=== PATIENT | male | born 1975 | race Caucasian/White ===

== ENCOUNTER 2018-11-12 12:35 | Emergency (ER) | payer BC, OTHER ==
[~2018-11-12] VITALS: Ht 176 cm; Wt 70.3 kg
[2018-11-12 13:15] LABS: HEMATOCRIT 38 % (40-54); HEMOGLOBIN 13.1 G/DL (13.3-17.7); MEAN CORPUSCULAR HEMOGLOBIN 30 PG (25-34); MEAN CORPUSCULAR VOLUME 87 FL (80-99)
[2018-11-12 13:16] LABS: BASOPHILS % (AUTO) 0 % (0-10); EOSINOPHILS # (AUTO) 0.1 10^3/uL (0.0-0.3); EOSINOPHILS % (AUTO) 7 % (0-10); LYMPHOCYTES # (AUTO) 3.1 X 10^3 (1.0-4.0); LYMPHOCYTES % (AUTO) 26 % (12-44); MEAN CORPUSCULAR HGB CONC 34 G/DL (32-36); MEAN PLATELET VOLUME 9.2 FL (7.4-10.4); MONOCYTES # (AUTO) 1.5 X 10^3 (0.0-1.0); MONOCYTES % (AUTO) 13 % (0-12); NEUTROPHILS # (AUTO) 7.2 X 10^3 (1.8-7.8); NEUTROPHILS % (AUTO) 60 % (42-75); PLATELET COUNT 248 10^3/uL (130-400); RED CELL DISTRIBUTION WIDTH 12.1 % (10.0-14.5)
[2018-11-12 13:33] LABS: BILIRUBIN,TOTAL 0.9 MG/DL (0.1-1.0); BUN/CREATININE RATIO 12; CALCIUM 8.8 MG/DL (8.5-10.1); CARBON DIOXIDE 22 MMOL/L (21-32); CHLORIDE 94 MMOL/L (98-107); CREATININE SERUM 0.95 MG/DL (0.60-1.30); GFR ESTIMATED > 60; GLUCOSE 112 MG/DL (70-105); POTASSIUM 3.7 MMOL/L (3.6-5.0); SODIUM 133 MMOL/L (135-145)
[2018-11-12 13:34] LABS: ALANINE AMINOTRANSFERASE 66 U/L (0-55); ALBUMIN 4.1 GM/DL (3.2-4.5); ALKALINE PHOSPHATASE 103 U/L (40-136); TOTAL PROTEIN 7.2 GM/DL (6.4-8.2)
[2018-11-12 14:17] LABS: BILIRUBIN,URINE 2+ (NEGATIVE); CLARITY,URINE CLEAR; COLOR,URINE BROWN; GLUCOSE, URINE (UA) NEGATIVE (NEGATIVE); KETONES,URINE TRACE (NEGATIVE); NITRITE,URINE NEGATIVE (NEGATIVE); PROTEIN,URINE 1+ (NEGATIVE)
[2018-11-12 14:18] LABS: BACTERIA,URINE TRACE /HPF; LEUKOCYTE ESTERASE ,URINE TRACE (NEGATIVE)
--- NOTE | 2018-11-12 14:50 | ED General ---
General Chief Complaint: Respiratory Problems Stated Complaint: ABD PAIN Nursing Triage Note: Patient arrived by private vehcile with significant other with chief complaint of side pain. Pt stated side pain bilateral, started couple days ago. SOB started yesterday. Pt was alert, orineted and ambulatory at arrival. Pt stated he had fever for couple days and asked Ness Sanford APRN of [facility] if it was okay to give tylenol and she stated yes. So they gave him tylenol. Pt has PMH of heart attack 2 eyars ago with 1 stent placed. Patient has clear, bilateral breath sounds. Nursing Sepsis Screen: No Definite Risk Source of Information: Patient History of Present Illness Date Seen by Provider: Nov 12, 2018 Time Seen by Provider: 14:45 Initial Comments The patient is a 43-year-old white male who presents with a chief complaint of upper abdomen/lower chest pain. He reports that he has had a fever at home. He had been at work today carrying light loads. This brought the pain on. He reports that he had had some loose stools over the past 2 days. No one else at home has had this. He then began to have pain in the chest and was fearful as he had a myocardial infarction a couple of years ago which she calls the maker. He apparently had a totally occluded LAD. He had to be resuscitated 4 different times. He was left with an ejection fraction of 30 percent. He has continued follow-up in the subsequent time frame. Timing/Duration: 4-6 Hours Severity: Mild, Moderate Associated Systoms: Chest Pain, Diaphoresis, Shortness of Air Allergies and Home Medications Allergies Coded Allergies: No Known Drug Allergies (Unverified , 11/12/18) Patient Home Medication List Home Medication List Reviewed: Yes Review of Systems Review of Systems Constitutional: see HPI EENTM: no symptoms reported Respiratory: cough, short of breath Cardiovascular: see HPI Gastrointestinal: diarrhea Genitourinary: no symptoms reported Musculoskeletal: no symptoms reported Skin: no symptoms reported Past Chdgcbz-Lwctdd-Hynblk Hx Patient Social History Recent Foreign Travel: No Contact w/Someone Who Travel: No Recent Infectious Disease Expo: No Physical Abuse: No Sexual Abuse: No Mistreated: No Fear: No Physical Exam Vital Signs Vital Signs - First Documented 11/12/18 12:40 Temp 38.1 Pulse 72 Resp 17 B/P (MAP) 111/70 (84) Pulse Ox 95 O2 Delivery Room Air Capillary Refill : Less Than 3 Seconds Height, Weight, BMI Height: '" Weight: lbs. oz. kg; 22.00 BMI Method: General Appearance: Anxious, Mild Distress Eyes: Bilateral Eye Normal Inspection HEENT: Other (poor dentition) Neck: Full Range of Motion Respiratory: Chest Non Tender, Lungs Clear, Normal Breath Sounds, No Accessory Muscle Use Cardiovascular: Regular Rate, Rhythm Gastrointestinal: Abnormal Bowel Sounds (decreased) Neurologic/Psychiatric: Alert, Oriented x3, No Motor/Sensory Deficits Comments Very slender Progress/Results/Core Measures Suspected Sepsis Recent Fever Within 48 Hours: Yes Infection Criteria Present: Suspected New Infection New/Unexplained Altered Menta: No Sepsis Screen: No Definite Risk SIRS Temperature: Pulse: 72 Respiratory Rate: 17 Laboratory Tests 11/12/18 13:02: White Blood Count 12.0H Blood Pressure 111 /70 Mean: 84 Laboratory Tests 11/12/18 13:02: Creatinine 0.95, Platelet Count 248, Total Bilirubin 0.9 Results/Orders Lab Results Laboratory Tests Test 11/12/18 13:02 11/12/18 14:00 Range/Units White Blood Count 12.0 H 4.3-11.0 10^3/uL Red Blood Count 4.40 4.35-5.85 10^6/uL Hemoglobin 13.1 L 13.3-17.7 G/DL Hematocrit 38 L 40-54 % Mean Corpuscular Volume 87 80-99 FL Mean Corpuscular Hemoglobin 30 25-34 PG Mean Corpuscular Hemoglobin Concent 34 32-36 G/DL Red Cell Distribution Width 12.1 10.0-14.5 % Platelet Count 248 130-400 10^3/uL Mean Platelet Volume 9.2 7.4-10.4 FL Neutrophils (%) (Auto) 60 42-75 % Lymphocytes (%) (Auto) 26 12-44 % Monocytes (%) (Auto) 13 H 0-12 % Eosinophils (%) (Auto) 7 0-10 % Basophils (%) (Auto) 0 0-10 % Neutrophils # (Auto) 7.2 1.8-7.8 X 10^3 Lymphocytes # (Auto) 3.1 1.0-4.0 X 10^3 Monocytes # (Auto) 1.5 H 0.0-1.0 X 10^3 Eosinophils # (Auto) 0.1 0.0-0.3 10^3/uL Basophils # (Auto) 0.0 0.0-0.1 10^3/uL Sodium Level 133 L 135-145 MMOL/L Potassium Level 3.7 3.6-5.0 MMOL/L Chloride Level 94 L 98-107 MMOL/L Carbon Dioxide Level 22 21-32 MMOL/L Anion Gap 17 H 5-14 MMOL/L Blood Urea Nitrogen 11 7-18 MG/DL Creatinine 0.95 0.60-1.30 MG/DL Estimat Glomerular Filtration Rate > 60 BUN/Creatinine Ratio 12 Glucose Level 112 H 70-105 MG/DL Calcium Level 8.8 8.5-10.1 MG/DL Corrected Calcium 8.7 8.5-10.1 MG/DL Total Bilirubin 0.9 0.1-1.0 MG/DL Aspartate Amino Transf (AST/SGOT) 50 H 5-34 U/L Alanine Aminotransferase (ALT/SGPT) 66 H 0-55 U/L Alkaline Phosphatase 103 40-136 U/L Total Protein 7.2 6.4-8.2 GM/DL Albumin 4.1 3.2-4.5 GM/DL Urine Color BROWN H Urine Clarity CLEAR Urine pH 6.0 5-9 Urine Specific [place] 1.020 1.016-1.022 Urine Protein 1+ H NEGATIVE Urine Glucose (UA) NEGATIVE NEGATIVE Urine Ketones TRACE H NEGATIVE Urine Nitrite NEGATIVE NEGATIVE Urine Bilirubin 2+ H NEGATIVE Urine Urobilinogen 4.0 NORMAL MG/DL Urine Leukocyte Esterase TRACE NEGATIVE Urine RBC (Auto) TRACE H NEGATIVE Urine RBC NONE /HPF Urine WBC 2-5 /HPF Urine Crystals NONE /LPF Urine Bacteria TRACE /HPF Urine Casts NONE /LPF Urine Mucus MODERATE H /LPF Urine Culture Indicated NO My Orders Orders - MILO MCKEON MD Cbc With Automated Diff (11/12/18 12:49) Comprehensive Metabolic Panel (11/12/18 12:49) Ua Culture If Indicated (11/12/18 12:49) Chest 1 View Ap/Pa Only (11/12/18 14:43) Ekg Tracing (11/12/18 15:12) Vital Signs/I&O 11/12/18 12:40 Temp 38.1 Pulse 72 Resp 17 B/P (MAP) 111/70 (84) Pulse Ox 95 O2 Delivery Room Air Capillary Refill : Less Than 3 Seconds Blood Pressure Mean: 84 Departure Communication (Admissions) CBC was negative with granulocytes at 10,000. Chest x-ray showed no infilt rates. The patient again reiterates that he had had abdominal symptoms with loose but not watery stools for 2-3 days. He has not had a stool today. He has had a fever for the last several days. Impression Primary Impression: viral illness Disposition: HOME, SELF-CARE Condition: Stable/Unchanged Departure-Patient Inst. Decision time for Depature: 15:43 Referrals: [facility] (PCP) Primary Care Physician NESS SANFORD APRN (Family) Primary Care Physician Add. Discharge Instructions: All discharge instructions reviewed with patient and/or family. Voiced understanding. Take only clear liquids today. You may take Tylenol 650 every 4 hours as needed for fever and aches and pains. Do not use if you are temperature is less than 100. Return to emergency room if change in condition. MILO MCKEON MD Nov 12, 2018 14:50
--- NOTE | 2018-11-12 15:00 | Diagnostic Imaging Report ---
INDICATION: Shortness of breath. TIME OF EXAMINATION: 2:29 PM. COMPARISON: No prior studies are available for comparison. FINDINGS: The heart size is normal. The pulmonary vascularity is unremarkable. The lungs are clear. No infiltrate, effusion, or pneumothorax is detected. IMPRESSION: No acute cardiopulmonary process is detected. Dictated by: Dictated on workstation # [id number]
[2018-11-12 16:02] VITALS: BP 105/65
--- NOTE | 2018-11-12 16:02 | NUR ---
Patient has temp of 38.4C. Dr. Mendoza notified at this time. Dr. Mendoza gave verbal order for 60mg motrin. Order put in for 600mg motrin.
[2018-11-12] MEDS ORDERED: IBUPROFEN 600 MG (MOTRIN) TAB PO ONE ×2 (16:03→16:15)
== END 2018-11-12 16:24 | disposition home or self-care (01) ==
LOC: ER FS 12:38
DX: B34.9 Viral infection, unspecified (principal); I25.2 Old myocardial infarction; Z95.5 Presence of coronary angioplasty implant and graft
CPT/HCPCS: 36415; 71045; 80053; 81000; 85025; 93005

== ENCOUNTER 2019-03-09 01:48 | Emergency (ER) | payer BC ==
[~2019-03-09] VITALS: Ht 180.3 cm; Wt 74.0 kg
[2019-03-09 02:02] LABS: HEMATOCRIT 45 % (40-54); HEMOGLOBIN 15.5 G/DL (13.3-17.7); LYMPHOCYTES % (AUTO) 39 % (12-44); MEAN CORPUSCULAR HEMOGLOBIN 30 PG (25-34); MEAN CORPUSCULAR HGB CONC 34 G/DL (32-36); MEAN CORPUSCULAR VOLUME 87 FL (80-99); MEAN PLATELET VOLUME 9.3 FL (7.4-10.4); NEUTROPHILS % (AUTO) 50 % (42-75); PLATELET COUNT 308 10^3/uL (130-400); RED CELL DISTRIBUTION WIDTH 12.6 % (10.0-14.5); WHITE BLOOD COUNT 9.6 10^3/uL (4.3-11.0)
[2019-03-09 02:03] LABS: BASOPHILS % (AUTO) 0 % (0-10); EOSINOPHILS # (AUTO) 0.2 10^3/uL (0.0-0.3); EOSINOPHILS % (AUTO) 2 % (0-10); LYMPHOCYTES # (AUTO) 3.8 X 10^3 (1.0-4.0); MONOCYTES # (AUTO) 0.8 X 10^3 (0.0-1.0); MONOCYTES % (AUTO) 8 % (0-12); NEUTROPHILS # (AUTO) 4.8 X 10^3 (1.8-7.8)
--- NOTE | 2019-03-09 02:05 | ED GI ---
General Stated Complaint: EPIGASTRIC PAIN Source of Information: Patient Exam Limitations: No Limitations History of Present Illness Date Seen by Provider: Mar 09, 2019 Time Seen by Provider: 01:55 Initial Comments Onset of upper abdominal pain, suddenly while relaxing and watching TV tonight. PMHX siginificant for CAD/ MD .....had a heart attack in 2017. Patient states he does not typically have CP or abdominal pain and has never had to take a NTG since his heart attack. Denies recent illness or associated diaphoresis or soa. Allergies and Home Medications Allergies Coded Allergies: No Known Drug Allergies (Unverified , 11/12/18) Home Medications Famotidine 20 Mg Tablet, 20 MG PO BID Prescribed by: BHAVESH PARKER on 03/09/19 05 Nitroglycerin 0.4 Mg Tab.subl, 0.4 MG SL UD PRN for CHEST PAIN Prescribed by: BHAVESH PARKER on 03/09/19 0547 Patient Home Medication List Home Medication List Reviewed: Yes Review of Systems Review of Systems Constitutional: see HPI; No fever, No malaise, No weakness Respiratory: See HPI; Denies Orthopnea, Denies Shortness of Air, Denies Stridor, Denies Wheezing Cardiovascular: See HPI; Denies Chest Pain, Denies Irregular Heart Rate, Denies Lightheadedness, Denies Palpitations, Denies Syncope Gastrointestinal: See HPI; Denies Abdomen Distended; Abdominal Pain; Denies Constipated, Denies Diarrhea, Denies Nausea, Denies Poor Appetite, Denies Vomiting Genitourinary: See HPI; Denies Frequency, Denies Flank Pain, Denies Urgency Musculoskeletal: no symptoms reported; No back pain, No joint pain, No muscle pain, No muscle stiffness, No muscle cramps, No muscle weakness Skin: No change in color, No rash Psychiatric/Neurological: Denies Anxiety, Denies Depressed Past Dwxqhxu-Ivexbw-Tniqro Hx Past Med/Social Hx: Reviewed Nursing Past Med/Soc Hx Patient Social History Recent Foreign Travel: No Contact w/Someone Who Travel: No Recent Hopitalizations: No Seasonal Allergies Seasonal Allergies: No Past Medical History Surgeries: Yes (Open heart surgery) Respiratory: No Cardiac: Yes (Nonsustained ventricular tachycardic, stable angina (chronic)) Coronary Artery Disease, Heart Attack, High Cholesterol, Hypertension Neurological: No Genitourinary: No Gastrointestinal: Yes (Diverticulitis) Pancreatitis Musculoskeletal: No (restless leg syndrome) Endocrine: No HEENT: No Cancer: No Psychosocial: No Integumentary: No Blood Disorders: No Physical Exam Vital Signs Vital Signs - First Documented 03/09/19 02:11 Temp 36.8 Pulse 74 Resp 18 B/P (MAP) 138/85 (102) O2 Delivery Room Air Capillary Refill : Height/Weight/BMI Height: '" Weight: lbs. oz. kg; 22.00 BMI Method: General Appearance: WD/WN, no apparent distress Neck: non-tender, full range of motion, supple, normal inspection Respiratory: chest non-tender, lungs clear, normal breath sounds, no respiratory distress, no accessory muscle use Cardiovascular: normal peripheral pulses, regular rate, rhythm, no edema, no gallop, no JVD, no murmur Gastrointestinal: normal bowel sounds, non tender, soft, no organomegaly, no pulsatile mass Extremities: normal range of motion, non-tender, no pedal edema, no calf tenderness Back: normal inspection, no CVA tenderness, no vertebral tenderness Skin: normal color, warm/dry Progress/Results/Core Measures Results/Orders Lab Results Laboratory Tests Test 03/09/19 01:54 03/09/19 05:02 Range/Units White Blood Count 9.6 4.3-11.0 10^3/uL Red Blood Count 5.24 4.35-5.85 10^6/uL Hemoglobin 15.5 13.3-17.7 G/DL Hematocrit 45 40-54 % Mean Corpuscular Volume 87 80-99 FL Mean Corpuscular Hemoglobin 30 25-34 PG Mean Corpuscular Hemoglobin Concent 34 32-36 G/DL Red Cell Distribution Width 12.6 10.0-14.5 % Platelet Count 308 130-400 10^3/uL Mean Platelet Volume 9.3 7.4-10.4 FL Neutrophils (%) (Auto) 50 42-75 % Lymphocytes (%) (Auto) 39 12-44 % Monocytes (%) (Auto) 8 0-12 % Eosinophils (%) (Auto) 2 0-10 % Basophils (%) (Auto) 0 0-10 % Neutrophils # (Auto) 4.8 1.8-7.8 X 10^3 Lymphocytes # (Auto) 3.8 1.0-4.0 X 10^3 Monocytes # (Auto) 0.8 0.0-1.0 X 10^3 Eosinophils # (Auto) 0.2 0.0-0.3 10^3/uL Basophils # (Auto) 0.0 0.0-0.1 10^3/uL Sodium Level 137 135-145 MMOL/L Potassium Level 4.5 3.6-5.0 MMOL/L Chloride Level 100 98-107 MMOL/L Carbon Dioxide Level 22 21-32 MMOL/L Anion Gap 15 H 5-14 MMOL/L Blood Urea Nitrogen 13 7-18 MG/DL Creatinine 0.86 0.60-1.30 MG/DL Estimat Glomerular Filtration Rate > 60 BUN/Creatinine Ratio 15 Glucose Level 125 H 70-105 MG/DL Calcium Level 9.1 8.5-10.1 MG/DL Corrected Calcium 8.5-10.1 MG/DL Total Bilirubin 0.4 0.1-1.0 MG/DL Aspartate Amino Transf (AST/SGOT) 37 H 5-34 U/L Alanine Aminotransferase (ALT/SGPT) 51 0-55 U/L Alkaline Phosphatase 82 40-136 U/L Troponin I < 0.30 < 0.30 <0.30 NG/ML Total Protein 7.2 6.4-8.2 GM/DL Albumin 4.6 H 3.2-4.5 GM/DL My Orders Orders - ROVENSTINEBHAVESH L DO Ed Iv/Invasive Line Start (03/09/19 02:00) Cbc With Automated Diff (03/09/19 02:00) Comprehensive Metabolic Panel (03/09/19 02:00) Troponin I Fs (03/09/19 02:00) Chest 1 View Ap/Pa Only (03/09/19 02:00) Ekg Tracing (03/09/19 02:00) Famotidine Injection (Pepcid Injection) (03/09/19 02:45) Antacid Suspension (Mylanta Suspension (03/09/19 02:45) Troponin I Fs (03/09/19 05:00) Ekg Tracing (03/09/19 04:45) Medications Given in ED Current Medications Medications Dose Ordered Sig/Eddi Route Start Time Stop Time Status Last Admin Dose Admin Al Hydrox/Mg Hydrox/Simethicone 30 ml ONCE ONCE PO 03/09/19 02:45 03/09/19 04:06 DC 03/09/19 02:55 30 ML Famotidine 20 mg ONCE ONCE IVP 03/09/19 02:45 03/09/19 04:06 DC 03/09/19 02:55 20 MG Vital Signs/I&O 03/09/19 03/09/19 02:11 02:11 Temp 36.8 Pulse 74 Resp 18 B/P (MAP) 138/85 (102) O2 Delivery Room Air Room Air Progress Progress Note : Time: 06:00 Progress Note repeat Troponin and ECG normal. Patient w no CP or soa. Minimal point tenderness to epigastric area only, remains. Pt never had CP. Well appearing, advised f/u w Cable Tender in 1-2 wks, sooner w PCP if unable to be seen and ER if worse. Initial ECG Impression Date: Mar 09, 2019 Initial ECG Impression Time: 02:02 Initial ECG Rate: 72 Initial ECG Rhythm: A Fib/Flutter Initial ECG Intervals: Normal Initial ECG Comparisson: No Previous ECG Available Comment no ST changes EKG : EKG Time: 04:45 Rhythm: S.Jonel (rate of 47) ECG Comparisson: Unchanged Comment normal ECG, no A.fib. Believe artifact for first ECG showing a. fib w regular rhythm. Departure Impression Primary Impression: Epigastric pain Disposition: 01 HOME, SELF-CARE Condition: Improved Departure-Patient Inst. Decision time for Depature: 05:45 Referrals: LORENZO SANFORD APRN (PCP/Family) Primary Care Physician Patient Instructions: Acute Abdomen (Belly Pain), Adult (DC), Chest Pain (DC) Scripts Nitroglycerin (Nitroglycerin) 0.4 Mg Tab.subl 0.4 MG SL UD PRN for CHEST PAIN, #30 TAB Prov: BHAVESH PARKER DO 03/09/19 Famotidine (Pepcid) 20 Mg Tablet 20 MG PO BID, #30 TAB Prov: SHANNONVENSTINEBHAVESH DO 03/09/19 JOSESTINEBHAVESH DO Mar 09, 2019 02:05
[2019-03-09 02:25] LABS: ALANINE AMINOTRANSFERASE 51 U/L (0-55); ALBUMIN 4.6 GM/DL (3.2-4.5); ALKALINE PHOSPHATASE 82 U/L (40-136); BILIRUBIN,TOTAL 0.4 MG/DL (0.1-1.0); BUN/CREATININE RATIO 15; CALCIUM 9.1 MG/DL (8.5-10.1); CARBON DIOXIDE 22 MMOL/L (21-32); CHLORIDE 100 MMOL/L (98-107); CREATININE SERUM 0.86 MG/DL (0.60-1.30); GFR ESTIMATED > 60; GLUCOSE 125 MG/DL (70-105); POTASSIUM 4.5 MMOL/L (3.6-5.0); SODIUM 137 MMOL/L (135-145); TOTAL PROTEIN 7.2 GM/DL (6.4-8.2)
[2019-03-09] MEDS ORDERED: FAMOTIDINE 20MG/2ML IV (PEPCID) IVP ONE (02:45)
[2019-03-09] MEDS ORDERED: ANTACID SUSP 30 ML UDC (MYLANTA) PO ONE (02:45)
--- NOTE | 2019-03-09 03:09 | NUR ---
PT RESTING IN BED WITH AT BEDSIDE. PT INFORMED OF THE PLAN OF CARE AND THE EXPECTED WAIT TIME TO REPEAT LAB AND EKG. PT REQUESTED LIGHTS TO BE TURNED DOWN AND THIS WAS DONE. PT INFORMED TO LET STAFF KNOW IF HE NEEDS ANYTHING AND HE VOICED UNDERSTANDING.
[2019-03-09] MEDS ORDERED: FAMO-119 PO (05:47)
[2019-03-09] MEDS ORDERED: NITR0.4T39 SL (05:47)
[2019-03-09 05:56] VITALS: BP 114/54
--- NOTE | 2019-03-09 06:51 | Diagnostic Imaging Report ---
EXAMINATION: Chest 1 view HISTORY: Chest pain. History of heart attack. COMPARISON: 11/12/2018 FINDINGS: The lung volumes are normal. No focal consolidation is seen. No large pleural effusion or pneumothorax is seen. The cardiomediastinal silhouette is normal in size and contour. No acute osseous abnormality is seen. IMPRESSION: 1. No acute pleuroparenchymal process. Dictated by: Dictated on workstation # [id number]
== END 2019-03-09 05:56 | disposition home or self-care (01) ==
LOC: EDUNIT# 01:48 → ER FS 01:52
DX: R10.13 Epigastric pain (principal); I10 Essential (primary) hypertension; I25.2 Old myocardial infarction; I25.10 Atherosclerotic heart disease of native coronary artery without angina pectoris; E78.00 Pure hypercholesterolemia, unspecified
CPT/HCPCS: 36415; 71045; 80053; 84484; 85025; 93005; 96374

== ENCOUNTER 2019-03-10 10:56 | Emergency (ER) | payer BC ==
[~2019-03-10] VITALS: Ht 180 cm; Wt 72.3 kg
[~2019-03-10 10:56] MED LIST: FAMO-119 PO; NITR0.4T39 SL
--- NOTE | 2019-03-10 11:35 | ED Chest Pain ---
General Chief Complaint: Chest Pain Stated Complaint: CHEST PAIN Source: patient Exam Limitations: no limitations History of Present Illness Date Seen by Provider: Mar 10, 2019 Time Seen by Provider: 11:05 Initial Comments The patient is a pleasant 44-year-old male presents for evaluation of lower sternal chest discomfort radiating to the left neck. He was seen in this emergency department a few days ago for the same complaint and had a negative workup. Today he was following up in his PCPs office when his symptoms worsened and he was brought down to the emergency department. He states that a few years ago he had a heart attack and had a stent placed in his LAD and that this was performed at [facility]. He states that if he is admitted he would prefer to be transferred back to that facility. He is alert and oriented 4, calm, and appears to be no distress. He appears to be in atrial fibrillation upon arrival which is a new diagnosis for him. He took a baby aspirin at home prior to arrival. Timing/Duration: 2-3 days Severity/Quality: moderate Location: substernal Prior CP/Workup: cardiac cath, heart attack ASA po LIME VAT TENDER: Yes NTG SL LIME VAT TENDER: No Allergies and Home Medications Allergies Coded Allergies: No Known Drug Allergies (Unverified , 11/12/18) Home Medications Famotidine 20 Mg Tablet, 20 MG PO BID Prescribed by: BHAVESH PARKER on 03/09/19 0547 Nitroglycerin 0.4 Mg Tab.subl, 0.4 MG SL UD PRN for CHEST PAIN Prescribed by: BHAVESH PARKER on 03/09/19 0547 Patient Home Medication List Home Medication List Reviewed: Yes Review of Systems Review of Systems Constitutional: no symptoms reported EENTM: No Symptoms Reported Respiratory: Shortness of Air Cardiovascular: Chest Pain Gastrointestinal: No Symptoms Reported Genitourinary: No Symptoms Reported Musculoskeletal: no symptoms reported Skin: no symptoms reported Psychiatric/Neurological: No Symptoms Reported Endocrine: No Symptoms Reported Hematologic/Lymphatic: No Symptoms Reported All Other Systems Reviewed Negative Unless Noted: Yes Past Roldtpn-Uahtfk-Mronal Hx Past Med/Social Hx: Reviewed Nursing Past Med/Soc Hx Patient Social History Type Used: Cigars 2nd Hand Smoke Exposure: Yes Recent Foreign Travel: No Recent Hopitalizations: No Seasonal Allergies Seasonal Allergies: No Past Medical History Surgeries: Yes (Open heart surgery) Respiratory: No Cardiac: Yes (Nonsustained ventricular tachycardic, stable angina (chronic)) Coronary Artery Disease, Heart Attack, High Cholesterol, Hypertension Neurological: No Genitourinary: No Gastrointestinal: Yes (Diverticulitis) Pancreatitis Musculoskeletal: Yes (restless leg syndrome) Endocrine: No HEENT: No Cancer: No Psychosocial: No Integumentary: No Blood Disorders: No Physical Exam Vital Signs Vital Signs - First Documented 03/10/19 10:59 Temp 36.6 Pulse 60 Resp 14 B/P (MAP) 146/85 (105) Pulse Ox 98 O2 Delivery Room Air Capillary Refill : Height, Weight, BMI Height: '" Weight: lbs. oz. kg; 22.00 BMI Method: General Appearance: No Apparent Distress, WD/WN HEENT: PERRL/EOMI, TMs Normal Neck: Full Range of Motion, Normal Inspection, Non Tender Respiratory: Chest Non Tender, Normal Breath Sounds, No Accessory Muscle Use, No Respiratory Distress Cardiovascular: Regular Rate, Rhythm, No Edema, No JVD Gastrointestinal: Normal Bowel Sounds, Non Tender, Soft Extremity: Normal Capillary Refill, Non Tender, No Calf Tenderness Neurologic/Psychiatric: Alert, Oriented x3, No Motor/Sensory Deficits, Normal Mood/Affect Skin: Normal Color, Warm/Dry Progress/Results/Core Measures Results/Orders Lab Results Laboratory Tests Test 03/10/19 11:20 Range/Units White Blood Count 9.7 4.3-11.0 10^3/uL Red Blood Count 5.53 4.35-5.85 10^6/uL Hemoglobin 16.5 13.3-17.7 G/DL Hematocrit 50 40-54 % Mean Corpuscular Volume 90 80-99 FL Mean Corpuscular Hemoglobin 30 25-34 PG Mean Corpuscular Hemoglobin Concent 33 32-36 G/DL Red Cell Distribution Width 12.7 10.0-14.5 % Platelet Count 309 130-400 10^3/uL Mean Platelet Volume 9.1 7.4-10.4 FL Neutrophils (%) (Auto) 57 42-75 % Lymphocytes (%) (Auto) 33 12-44 % Monocytes (%) (Auto) 9 0-12 % Eosinophils (%) (Auto) 1 0-10 % Basophils (%) (Auto) 0 0-10 % Neutrophils # (Auto) 5.5 1.8-7.8 X 10^3 Lymphocytes # (Auto) 3.2 1.0-4.0 X 10^3 Monocytes # (Auto) 0.8 0.0-1.0 X 10^3 Eosinophils # (Auto) 0.1 0.0-0.3 10^3/uL Basophils # (Auto) 0.0 0.0-0.1 10^3/uL Sodium Level 137 135-145 MMOL/L Potassium Level 4.3 3.6-5.0 MMOL/L Chloride Level 101 98-107 MMOL/L Carbon Dioxide Level 23 21-32 MMOL/L Anion Gap 13 5-14 MMOL/L Blood Urea Nitrogen 12 7-18 MG/DL Creatinine 0.91 0.60-1.30 MG/DL Estimat Glomerular Filtration Rate > 60 BUN/Creatinine Ratio 13 Glucose Level 114 H 70-105 MG/DL Calcium Level 9.4 8.5-10.1 MG/DL Corrected Calcium 8.5-10.1 MG/DL Total Bilirubin 0.7 0.1-1.0 MG/DL Aspartate Amino Transf (AST/SGOT) 29 5-34 U/L Alanine Aminotransferase (ALT/SGPT) 49 0-55 U/L Alkaline Phosphatase 81 40-136 U/L Troponin I < 0.30 <0.30 NG/ML Pro-B-Type Natriuretic Peptide 74.5 <75.0 PG/ML Total Protein 7.3 6.4-8.2 GM/DL Albumin 4.7 H 3.2-4.5 GM/DL My Orders Orders - KARTIK AVALOS DO Cbc With Automated Diff (03/10/19 11:07) Chest 1 View Ap/Pa Only (03/10/19 11:07) Ekg Tracing (03/10/19 11:07) Comprehensive Metabolic Panel (03/10/19 11:07) O2 (03/10/19 11:07) Monitor-Rhythm Ecg Trace Only (03/10/19 11:07) Ed Iv/Invasive Line Start (03/10/19 11:07) Troponin I Fs (03/10/19 11:07) Probnp Fs (03/10/19 11:07) Nitroglycerin 0.4 Mg Btl 25's (Nitrostat (03/10/19 12:30) Medications Given in ED Current Medications Medications Dose Ordered Sig/Eddi Route Start Time Stop Time Status Last Admin Dose Admin Nitroglycerin 0.4 mg NEEDED PRN SL 03/10/19 12:30 03/10/19 13:44 0.4 MG Vital Signs/I&O 03/10/19 03/10/19 10:59 10:59 Temp 36.6 Pulse 60 Resp 14 B/P (MAP) 146/85 (105) Pulse Ox 98 O2 Delivery Room Air Room Air Progress Progress Note : Progress Note @1236 - Patient and updated on lab and imaging results. He is still having some discomfort and nitroglycerin has been ordered. He is agreeable to admission. Contacted the transfer center at [facility] and they accept the patient for transfer. @1250 - Dr. Barbara Michael accepts the patient for transfer. Nitroglycerin resolved the patient's pain complaint. Initial ECG Impression Date: Mar 10, 2019 Initial ECG Impression Time: 11:00 Initial ECG Rhythm: A Fib/Flutter Comment @1100 - sinus bradycardia, rate of 53, inverted T waves noted in V4-V6, no acute ischemic findings noted, no STEMI, reviewed and interpreted by myself Departure Impression Primary Impression: Chest pain Disposition: [facility]FER [facility] Condition: Stable Transfer Transfer Reason: Exceeds level of care Time Spoke to Accepting Phy: 12:[address] Barbara Michael at [facility] accepts the transfer. Transfer Time: 14:15 Transfer Facility: [facility] Method of Transfer: EMS Departure-Patient Inst. Referrals: LORENZO SANFORD MACHINE JOINT CUTTER (PCP/Family) Primary Care Physician KARTIK AVALOS DO Mar 10, 2019 11:35
[2019-03-10 11:49] LABS: HEMATOCRIT 50 % (40-54); HEMOGLOBIN 16.5 G/DL (13.3-17.7); MEAN CORPUSCULAR HEMOGLOBIN 30 PG (25-34); MEAN CORPUSCULAR HGB CONC 33 G/DL (32-36); MEAN CORPUSCULAR VOLUME 90 FL (80-99); RED CELL DISTRIBUTION WIDTH 12.7 % (10.0-14.5); WHITE BLOOD COUNT 9.7 10^3/uL (4.3-11.0)
[2019-03-10 11:50] LABS: BASOPHILS % (AUTO) 0 % (0-10); EOSINOPHILS # (AUTO) 0.1 10^3/uL (0.0-0.3); EOSINOPHILS % (AUTO) 1 % (0-10); LYMPHOCYTES # (AUTO) 3.2 X 10^3 (1.0-4.0); LYMPHOCYTES % (AUTO) 33 % (12-44); MEAN PLATELET VOLUME 9.1 FL (7.4-10.4); MONOCYTES # (AUTO) 0.8 X 10^3 (0.0-1.0); MONOCYTES % (AUTO) 9 % (0-12); NEUTROPHILS # (AUTO) 5.5 X 10^3 (1.8-7.8); NEUTROPHILS % (AUTO) 57 % (42-75); PLATELET COUNT 309 10^3/uL (130-400)
--- NOTE | 2019-03-10 12:04 | Diagnostic Imaging Report ---
EXAMINATION: Chest 1 view HISTORY: Chest pain. COMPARISON: 03/09/2019 FINDINGS: The lung volumes are normal. No focal consolidation is seen. No large pleural effusion or pneumothorax is seen. The cardiomediastinal silhouette is normal in size and contour. No acute osseous abnormality is seen. IMPRESSION: 1. No acute pleuroparenchymal process. Dictated by: Dictated on workstation # [id number]
[2019-03-10 12:24] LABS: ALANINE AMINOTRANSFERASE 49 U/L (0-55); ALBUMIN 4.7 GM/DL (3.2-4.5); ALKALINE PHOSPHATASE 81 U/L (40-136); BILIRUBIN,TOTAL 0.7 MG/DL (0.1-1.0); BUN/CREATININE RATIO 13; CALCIUM 9.4 MG/DL (8.5-10.1); CARBON DIOXIDE 23 MMOL/L (21-32); CHLORIDE 101 MMOL/L (98-107); CREATININE SERUM 0.91 MG/DL (0.60-1.30); GFR ESTIMATED > 60; GLUCOSE 114 MG/DL (70-105); POTASSIUM 4.3 MMOL/L (3.6-5.0); SODIUM 137 MMOL/L (135-145); TOTAL PROTEIN 7.3 GM/DL (6.4-8.2)
[2019-03-10] MEDS: NITROGLYCERIN 0.4 MG SL TABS BTL 25'S SL PRN ×2 (12:38→13:44)
[2019-03-10 14:52] VITALS: BP 125/71
== END 2019-03-10 14:52 | disposition short-term general hospital (02) ==
LOC: EDUNIT# 10:56 → ER FS 10:58
DX: R07.2 Precordial pain (principal); I25.2 Old myocardial infarction; I10 Essential (primary) hypertension; I25.118 Atherosclerotic heart disease of native coronary artery with other forms of angina pectoris; I48.91 Unspecified atrial fibrillation; E78.00 Pure hypercholesterolemia, unspecified; Z95.5 Presence of coronary angioplasty implant and graft; Z79.82 Long term (current) use of aspirin; Z77.22 Contact with and (suspected) exposure to environmental tobacco smoke (acute) (chronic)
CPT/HCPCS: 36415; 71045; 80053; 83880; 84484; 85025; 93005; 93041

== ENCOUNTER 2019-08-27 05:46 | Outpatient (RCR) | payer BC ==
[~2019-08-27] VITALS: Ht 180.3 cm; Wt 72.7 kg
[~2019-08-27 05:46] MED LIST changes: +ASPI-586 PO; +ATOR40TA70 PO; +CARV3.122 PO; +CLOP75TA28 PO; +GABA300C PO; +LISI-556 PO
== END 2019-08-27 15:04 | disposition home or self-care (01) ==
LOC: PREOP 05:46
PROVIDERS: ATTEND Surgery
DX: Z01.812 Encounter for preprocedural laboratory examination (principal); K21.9 Gastro-esophageal reflux disease without esophagitis; Z20.828 Contact with and (suspected) exposure to other viral communicable diseases
CPT/HCPCS: 87635

== ENCOUNTER 2019-08-31 08:21 | Day surgery (SDC) | payer BC ==
[~2019-08-31] VITALS: Ht 180.3 cm; Wt 72.7 kg
[2019-08-31] MEDS ORDERED: LACTATED RINGERS 1,000 ML IV STA (08:24)
[2019-08-31] MEDS ORDERED: LACTATED RINGERS 1,000 ML IV ONE (08:25)
[2019-08-31 08:36] VITALS: BP 147/84
--- OUTSIDE RECORDS SUMMARY | 2019-08-31 08:36 | XMS REPORT | Continuity of Care Document ---
Author Organization Unknown Address Unknown Phone Unavailable Allergies Active Description Code Type Severity Reaction Onset Reported/Identified Relationship to Patient Clinical Status Yes No Known Drug Allergies [id number] Drug Allergy Unknown N/A 11/12/2018 Medications There is no data. Problems Date Dx Coded Attending Type Code Diagnosis Diagnosed By 03/16/2009 780.79 MAL AISE AND FATIGUE 03/16/2009 REINA BLOUNT MD 780.7 9 MALAISE AND FATIGUE 03/16/2009 REINA BLOUNT MD 780.7 9 MALAISE AND FATIGUE 04/11/2009 729.1 MYAL YESSENIA AND MYOSITIS, UNSPECIFIED 04/11/2009 REINA BLOUNT MD 729.1 MYALGIA AND MYOSITIS, UNSPECIFIED 04/11/2009 REINA BLOUNT MD 729.1 MYALGIA AND MYOSITIS, UNSPECIFIED 12/07/2009 782.1 RASH 12/07/2009 REINA BLOUNT MD 782.1 RASH 12/07/2009 REINA BLOUNT MD 782.1 RASH 12/20/2009 706.3 SEBO RRHEA 12/20/2009 REINA BLOUNT MD 706.3 SEBORRHEA 12/20/2009 REINA BLOUNT MD 706.3 SEBORRHEA 10/06/2010 311 DEPRES SIVE DISORDER NOT ELSEWHERE CLASSIFIED 10/06/2010 401.9 UNSP ECIFIED ESSENTIAL HYPERTENSION 10/06/2010 REINA BLOUNT MD 311 DEPRESSIVE DISORDER NOT ELSEWHERE CLASSIFIED 10/06/2010 REINA BLOUNT MD 401.9 UNSPECIFIED ESSENTIAL HYPERTENSION 10/06/2010 REINA BLOUNT MD 311 DEPRESSIVE DISORDER NOT ELSEWHERE CLASSIFIED 10/06/2010 REINA BLOUNT MD 401.9 UNSPECIFIED ESSENTIAL HYPERTENSION 02/13/2011 785.1 PALP ITATIONS 02/13/2011 REINA BLOUNT MD 785.1 PALPITATIONS 02/13/2011 REINA BLOUNT MD 785.1 PALPITATIONS 11/12/2018 MILO MCKEON MD, Ot B34 .9 VIRAL INFECTION, UNSPECIFIED 11/12/2018 MILO MCKEON MD Ot I25 .2 OLD MYOCARDIAL INFARCTION 11/12/2018 MILO MCKEON MD Ot R10 .9 UNSPECIFIED ABDOMINAL PAIN 11/12/2018 MILO MCKEON MD Ot Z95 .5 PRESENCE OF CORONARY ANGIOPLASTY IMPLANT 11/14/2018 MILO MCKEON MD Ot B34 .9 VIRAL INFECTION, UNSPECIFIED 11/14/2018 MILO MCKEON MD Ot I25 .2 OLD MYOCARDIAL INFARCTION 11/14/2018 MILO MCKEON MD Ot R10 .9 UNSPECIFIED ABDOMINAL PAIN 11/14/2018 MILO MCKEON MD Ot Z95 .5 PRESENCE OF CORONARY ANGIOPLASTY IMPLANT 03/09/2019 ROVENSTINE DO, BHAVESH L Ot E78.00 PURE HYPERCHOLESTEROLEMIA, UNSPECIFIED 03/09/2019 ROVENSTINE DO, BHAVESH L Ot I10 ESSENTIAL (PRIMARY) HYPERTENSION 03/09/2019 ROVENSTINE DO, BHAVESH L Ot I25.10 ATHSCL HEART DISEASE OF [place] CORONARY 03/09/2019 ROVENSTINE DO, BHAVESH L Ot I25.2 OLD MYOCARDIAL INFARCTION 03/09/2019 ROVENSTINE DO, BHAVESH L Ot R10.13 EPIGASTRIC PAIN 03/10/2019 BAILEY VERDUGO DO Ot E78. 00 PURE HYPERCHOLESTEROLEMIA, UNSPECIFIED 03/10/2019 BAILEY VERDUGO DO Ot I10 ESSENTIAL (PRIMARY) HYPERTENSION 03/10/2019 BAILEY VERDUGO DO Ot I25.118 ATHSCL HEART DISEASE OF [place] COR ART W 03/10/2019 BAILEY VERDUGO DO Ot I25. 2 OLD MYOCARDIAL INFARCTION 03/10/2019 BAILEY VERDUGO DO Ot I48. 91 UNSPECIFIED ATRIAL FIBRILLATION 03/10/2019 BAILEY VERDUGO DO Ot R07. 2 PRECORDIAL PAIN 03/10/2019 BAILEY VERDUGO DO Ot Z77. 22 CNTCT W AND EXPSR TO ENVIRON TOBACCO SMO 03/10/2019 BAILEY VERDUGO DO Ot Z79. 82 [employer] (CURRENT) USE OF ASPIRIN 03/10/2019 BAILEY VERDUGO DO Ot Z95. 5 PRESENCE OF CORONARY ANGIOPLASTY IMPLANT 03/13/2019 ROVENSTINE DO, BHAVESH L Ot E78.00 PURE HYPERCHOLESTEROLEMIA, UNSPECIFIED 03/13/2019 ROVENSTINE DO, BHAVESH L Ot I10 ESSENTIAL (PRIMARY) HYPERTENSION 03/13/2019 ROVENSTINE DO, BHAVESH James Ot I25.10 ATHSCL HEART DISEASE OF [place] CORONARY 03/13/2019 ROVENSTINE DO BHAVESH James Ot I25.2 OLD MYOCARDIAL INFARCTION 03/13/2019 ROVENSTINE DO BHAVESH James Ot R10.13 EPIGASTRIC PAIN 03/14/2019 BAILEY VERDUGO DO Ot E78. 00 PURE HYPERCHOLESTEROLEMIA, UNSPECIFIED 03/14/2019 BAILEY VERDUGO DO B Ot I10 ESSENTIAL (PRIMARY) HYPERTENSION 03/14/2019 BAILEY VERDUGO DO B Ot I25.118 ATHSCL HEART DISEASE OF [place] COR ART W 03/14/2019 BAILEY VERDUGO DO Ot I25. 2 OLD MYOCARDIAL INFARCTION 03/14/2019 BAILEY VERDUGO DO Ot I48. 91 UNSPECIFIED ATRIAL FIBRILLATION 03/14/2019 BAILEY VERDUGO DO Ot R07. 2 PRECORDIAL PAIN 03/14/2019 BAILEY VERDUGO DO Ot Z77. 22 CNTCT W AND EXPSR TO ENVIRON TOBACCO SMO 03/14/2019 BAILEY VERDUGO DO B Ot Z79. 82 SENIOR LIVING (CURRENT) USE OF ASPIRIN 03/14/2019 KARTIK MANCILLA BAILEY B Ot Z95. 5 PRESENCE OF CORONARY ANGIOPLASTY IMPLANT Procedures Code Description [place] [address] EKG, TRACING (IN-HOUSE) 08/20/2012 61957 ROUT INE VENIPUNCTURE 08/25/2012 06216 CMP 08/26/[id number] GF R CALC (RESULT ONLY) 08/26/2012 Results Test Result Range LIPID PANEL - 05/21/18 09:30 CHOLESTEROL, TOTAL 143 mg/dL <200 HDL CHOLESTEROL 50 mg/dL >40 TRIGLYCERIDES 125 mg/dL <150 LDL-CHOLESTEROL 72 mg/dL (calc) NRG CHOL/HDLC RATIO 2.9 (calc) <5.0 NON HDL CHOLESTEROL 93 mg/dL (calc) <130 CMP - 05/21/18 09:30 GLUCOSE 98 mg/dL 65-99 UREA NITROGEN (BUN) 12 mg/dL 7-25 CREATININE 0.86 mg/dL 0.60-1.35 eGFR NON-AFR. RUSSIAN 108 mL/min/1.73m2 > OR = 60 eGFR 125 mL/min/1.73m2 > OR = 60 BUN/CREATININE RATIO NOT APPLICABLE (calc) 6-22 SODIUM 141 mmol/L 135-146 POTASSIUM 4.7 mmol/L 3.5-5.3 CHLORIDE 102 mmol/L 98-110 CARBON DIOXIDE 32 mmol/L 20-32 CALCIUM 9.7 mg/dL 8.6-10.3 PROTEIN, TOTAL 6.8 g/dL 6.1-8.1 ALBUMIN 4.5 g/dL 3.6-5.1 GLOBULIN 2.3 g/dL (calc) 1.9-3.7 ALBUMIN/GLOBULIN RATIO 2.0 (calc) 1.0-2. 5 BILIRUBIN, TOTAL 0.5 mg/dL 0.2-1.2 ALKALINE PHOSPHATASE 88 U/L 40-115 AST 24 U/L 10-40 ALT 34 U/L 9-46 Complete blood count (CBC) with automate d white blood cell (WBC) differential - 11/12/18 13:02 Blood leukocytes automated count (number/volume) 12.0 10*3/uL 4.3-11.0 Blood erythrocytes automated count (number/volume) 4.40 10*6/uL 4.35-5.85 Venous blood hemoglobin measurement (mass/volume) 13.1 g/dL 13.3-17.7 Blood hematocrit (volume fraction) 38 % 40-54 Automated erythrocyte mean corpuscular volume 87 [ foz_us] 80-99 Automated erythrocyte mean corpuscular h emoglobin (mass per erythrocyte) 30 pg 25-34 Automated erythrocyte mean corpuscular h emoglobin concentration measurement (mass/volume) 34 g/dL 32-36 Automated erythrocyte distribution width ratio 12. 1 % 10.0- 14.5 Automated blood platelet count (count/volume) 248 10*3/uL 130-400 Automated blood platelet mean volume measurement 9.2 [foz_us] 7.4-10.4 Automated blood neutrophils/100 leukocytes 60 % 42-75 Automated blood lymphocytes/100 leukocytes 26 % 12-44 Blood monocytes/100 leukocytes 13 % 0-12 Automated blood eosinophils/100 leukocytes 7 % 0-10 Automated blood basophils/100 leukocytes 0 % 0-10 Blood neutrophils automated count (number/volume) 7.2 10*3 1.8-7.8 Blood lymphocytes automated count (number/volume) 3.1 10*3 1.0-4.0 Blood monocytes automated count (number/volume) 1. 5 10*3 0.0-1.0 Automated eosinophil count 0.1 10*3/uL 0 .0-0.3 Automated blood basophil count (count/volume) 0.0 10*3/uL 0.0-0.1 Comprehensive metabolic panel - 11/12/18 13:02 Serum or plasma sodium measurement (moles/volume) 133 mmol/L 135-145 Serum or plasma potassium measurement (moles/volume) 3.7 mmol/L 3.6-5.0 Serum or plasma chloride measurement (moles/volume) 94 mmol/L 98-107 Carbon dioxide 22 mmol/L 21-32 Serum or plasma anion gap determination (moles/volume) 17 mmol/L 5-14 Serum or plasma urea nitrogen measurement (mass/volume ) 11 mg/dL 7-18 Serum or plasma creatinine measurement (mass/volume) 0.95 mg/dL 0.60-1.30 Serum or plasma urea nitrogen/creatinine mass ratio 12 NRG Serum or plasma creatinine measurement w ith calculation of estimated glomerular filtration rate > NRG Serum or plasma glucose measurement (mass/volume) 112 mg/dL 70-105 Serum or plasma calcium measurement (mass/volume) 8.8 mg/dL 8.5-10.1 Serum or plasma total bilirubin measurement (mass/volu me) 0.9 mg/dL 0.1-1.0 Serum or plasma alkaline phosphatase ramiro surement (enzymatic activity/volume) 103 U/L 40-136 Serum or plasma aspartate aminotransfera se measurement (enzymatic activity/volume) 50 U/L 5-34 Serum or plasma alanine aminotransferase measurement (enzymatic activity/volume) 66 U/L 0-55 Serum or plasma protein measurement (mass/volume) 7.2 g/dL 6.4-8.2 Serum or plasma albumin measurement (mass/volume) 4.1 g/dL 3.2-4.5 CALCIUM CORRECTED 8.7 mg/dL 8.5-10.1 Complete urinalysis with reflex to cultu re - 11/12/18 14:00 Urine color determination BROWN NRG Urine clarity determination CLEAR NR G Urine pH measurement by test strip 6.0 5-9 Specific gravity of urine by test strip 1.020 1.016-1.022 Urine protein assay by test strip, semi-quantitative 1+ NEGATIVE Urine glucose detection by automated test strip NE GATIVE NEGATIVE Erythrocytes detection in urine sediment by light micr oscopy TRACE NEGATIVE Urine ketones detection by automated test strip TR ANA CRISTINA NEGATIVE Urine nitrite detection by test strip NEGATIVE NEGATIVE Urine total bilirubin detection by test strip 2+ NEGATIVE Urine urobilinogen measurement by automated test strip (mass/volume) 4.0 mg/dL NORMAL Urine leukocyte esterase detection by dipstick TRA CE NEGATIVE Automated urine sediment erythrocyte cou nt by microscopy (number/high power field) NONE NRG Automated urine sediment leukocyte count by microscopy (number/high power field) [HPF] NRG Bacteria detection in urine sediment by light microsco py TRACE NRG Crystals detection in urine sediment by light microsco py NONE NRG Casts detection in urine sediment by light microscopy NONE NRG Mucus detection in urine sediment by light microscopy MODERATE NRG Complete urinalysis with reflex to culture NO NRG Complete blood count (CBC) with automate d white blood cell (WBC) differential - 03/09/19 01:54 Blood leukocytes automated count (number/volume) 9.6 10*3/uL 4.3-11.0 Blood erythrocytes automated count (number/volume) 5.24 10*6/uL 4.35-5.85 Venous blood hemoglobin measurement (mass/volume) 15.5 g/dL 13.3-17.7 Blood hematocrit (volume fraction) 45 % 40-54 Automated erythrocyte mean corpuscular volume 87 [ foz_us] 80-99 Automated erythrocyte mean corpuscular h emoglobin (mass per erythrocyte) 30 pg 25-34 Automated erythrocyte mean corpuscular h emoglobin concentration measurement (mass/volume) 34 g/dL 32-36 Automated erythrocyte distribution width ratio 12. 6 % 10.0- 14.5 Automated blood platelet count (count/volume) 308 10*3/uL 130-400 Automated blood platelet mean volume measurement 9.3 [foz_us] 7.4-10.4 Automated blood neutrophils/100 leukocytes 50 % 42-75 Automated blood lymphocytes/100 leukocytes 39 % 12-44 Blood monocytes/100 leukocytes 8 % 0-12 Automated blood eosinophils/100 leukocytes 2 % 0-10 Automated blood basophils/100 leukocytes 0 % 0-10 Blood neutrophils automated count (number/volume) 4.8 10*3 1.8-7.8 Blood lymphocytes automated count (number/volume) 3.8 10*3 1.0-4.0 Blood monocytes automated count (number/volume) 0. 8 10*3 0.0-1.0 Automated eosinophil count 0.2 10*3/uL 0 .0-0.3 Automated blood basophil count (count/volume) 0.0 10*3/uL 0.0-0.1 Comprehensive metabolic panel - 03/09/19 01:54 Serum or plasma sodium measurement (moles/volume) 137 mmol/L 135-145 Serum or plasma potassium measurement (moles/volume) 4.5 mmol/L 3.6-5.0 Serum or plasma chloride measurement (moles/volume) 100 mmol/L 98-107 Carbon dioxide 22 mmol/L 21-32 Serum or plasma anion gap determination (moles/volume) 15 mmol/L 5-14 Serum or plasma urea nitrogen measurement (mass/volume ) 13 mg/dL 7-18 Serum or plasma creatinine measurement (mass/volume) 0.86 mg/dL 0.60-1.30 Serum or plasma urea nitrogen/creatinine mass ratio 15 NRG Serum or plasma creatinine measurement w ith calculation of estimated glomerular filtration rate > NRG Serum or plasma glucose measurement (mass/volume) 125 mg/dL 70-105 Serum or plasma calcium measurement (mass/volume) 9.1 mg/dL 8.5-10.1 Serum or plasma total bilirubin measurement (mass/volu me) 0.4 mg/dL 0.1-1.0 Serum or plasma alkaline phosphatase ramiro surement (enzymatic activity/volume) 82 U/L 40-136 Serum or plasma aspartate aminotransfera se measurement (enzymatic activity/volume) 37 U/L 5-34 Serum or plasma alanine aminotransferase measurement (enzymatic activity/volume) 51 U/L 0-55 Serum or plasma protein measurement (mass/volume) 7.2 g/dL 6.4-8.2 Serum or plasma albumin measurement (mass/volume) 4.6 g/dL 3.2-4.5 TROPONIN I FS - 03/09/19 01:54 TROPONIN I FS < 0.30 <0.30 TROPONIN I FS - 03/09/19 05:02 TROPONIN I FS < 0.30 <0.30 Complete blood count (CBC) with automate d white blood cell (WBC) differential - 03/10/19 11:20 Blood leukocytes automated count (number/volume) 9.7 10*3/uL 4.3-11.0 Blood erythrocytes automated count (number/volume) 5.53 10*6/uL 4.35-5.85 Venous blood hemoglobin measurement (mass/volume) 16.5 g/dL 13.3-17.7 Blood hematocrit (volume fraction) 50 % 40-54 Automated erythrocyte mean corpuscular volume 90 [ foz_us] 80-99 Automated erythrocyte mean corpuscular h emoglobin (mass per erythrocyte) 30 pg 25-34 Automated erythrocyte mean corpuscular h emoglobin concentration measurement (mass/volume) 33 g/dL 32-36 Automated erythrocyte distribution width ratio 12. 7 % 10.0- 14.5 Automated blood platelet count (count/volume) 309 10*3/uL 130-400 Automated blood platelet mean volume measurement 9.1 [foz_us] 7.4-10.4 Automated blood neutrophils/100 leukocytes 57 % 42-75 Automated blood lymphocytes/100 leukocytes 33 % 12-44 Blood monocytes/100 leukocytes 9 % 0-12 Automated blood eosinophils/100 leukocytes 1 % 0-10 Automated blood basophils/100 leukocytes 0 % 0-10 Blood neutrophils automated count (number/volume) 5.5 10*3 1.8-7.8 Blood lymphocytes automated count (number/volume) 3.2 10*3 1.0-4.0 Blood monocytes automated count (number/volume) 0. 8 10*3 0.0-1.0 Automated eosinophil count 0.1 10*3/uL 0 .0-0.3 Automated blood basophil count (count/volume) 0.0 10*3/uL 0.0-0.1 Comprehensive metabolic panel - 03/10/19 11:20 Serum or plasma sodium measurement (moles/volume) 137 mmol/L 135-145 Serum or plasma potassium measurement (moles/volume) 4.3 mmol/L 3.6-5.0 Serum or plasma chloride measurement (moles/volume) 101 mmol/L 98-107 Carbon dioxide 23 mmol/L 21-32 Serum or plasma anion gap determination (moles/volume) 13 mmol/L 5-14 Serum or plasma urea nitrogen measurement (mass/volume ) 12 mg/dL 7-18 Serum or plasma creatinine measurement (mass/volume) 0.91 mg/dL 0.60-1.30 Serum or plasma urea nitrogen/creatinine mass ratio 13 NRG Serum or plasma creatinine measurement w ith calculation of estimated glomerular filtration rate > NRG Serum or plasma glucose measurement (mass/volume) 114 mg/dL 70-105 Serum or plasma calcium measurement (mass/volume) 9.4 mg/dL 8.5-10.1 Serum or plasma total bilirubin measurement (mass/volu me) 0.7 mg/dL 0.1-1.0 Serum or plasma alkaline phosphatase ramiro surement (enzymatic activity/volume) 81 U/L 40-136 Serum or plasma aspartate aminotransfera se measurement (enzymatic activity/volume) 29 U/L 5-34 Serum or plasma alanine aminotransferase measurement (enzymatic activity/volume) 49 U/L 0-55 Serum or plasma protein measurement (mass/volume) 7.3 g/dL 6.4-8.2 Serum or plasma albumin measurement (mass/volume) 4.7 g/dL 3.2-4.5 TROPONIN I 03/10/19 11:20 TROPONIN I FS < 0.30 <0.30 PROBNP 03/10/19 11:20 PROBNP FS 74.5 pg/mL <75.0 Coronavirus SARS-CoV-2 SO 2018 0 07:45 Coronavirus Ab [Units/volume] in Serum Negative Negative Encounters ACCT No. Visit Date/Time Discharge Status Pt. Type Provider Facility Loc./Unit Complaint [id number] 08/07/2013 14:53:00 08/07/2013 23:59: 59 CLS Outpatient REINA BLOUNT MD [id number] 08/25/2012 15:50:00 08/25/2012 23:59: 59 CLS Outpatient REINA BLOUNT MD [id number] 08/20/2012 14:55:00 Document Registration [id number] 04/17/2019 11:20:00 04/17/2019 23:59:5 9 CLS Outpatient LORENZO SANFORD [facility] [id number] 05/21/2018 09:00:00 Document Registration [id number] 08/27/2019 05:46:00 020 15:04:00 DIS Outpatient MARIA GUADALUPE DE LA PAZ DO [facility] PREOP EGD [id number] 03/10/2019 10:58:00 020 14:52:00 DIS Emergency BAILEY VERDUGO DO [facility] ER FS CHEST PAIN [id number] 03/09/2019 01:52:00 020 05:56:00 DIS Emergency BHAVESH PARKER DO [facility] ER FS EPIGASTRIC PAIN [id number] 11/12/2018 12:38:00 019 16:24:00 DIS Emergency MILO MCKEON MD [facility] ER FS ABD PAIN [id number] 08/31/2019 08:30:00 P EN Preadmit MARIA GUADALUPE DE LA PAZ DO [facility] ENDO GERD/EPIGASTRIC PAIN
--- OUTSIDE RECORDS SUMMARY | 2019-08-31 08:36 | XMS REPORT ---
Author Author Dinesh SANFORD Organization [facility] Address [address] [place] [address] Care Team Providers Care Curatorial Specialist Name Role Phone LORENZO SANFORD Unavailable PROBLEMS Type Condition ICD9-CM Code XMB92-SN Code Onset Dates Condition S tatus SNOMED Code Problem RLS (restless legs syndrome) G25.81 Oct, 201 6 Active 38056368 Problem Cigarette nicotine dependence, uncomplicated F1 7.210 Aug, Active 600904273 Problem Moderate episode of recurrent major depressive disorde r F33.1 Oct, Active 29323196 Problem History of VA (myocardial infarction) I25.2 Active 658365134 Problem Essential hypertension I10 Active 96038364 Problem Insomnia G47.00 Oct, Active 9388040 01 Problem Tobacco use Z72.0 Aug, Active 62353 3000 Problem Fibromyalgia M79.7 Nov, Active 2030 24446 Problem Insomnia, unspecified G47.00 Active 159738541 ALLERGIES No Information ENCOUNTERS Encounter Location Date Diagnosis [address] [address] [address] [address] 15 Feb, 2019 [address] [address] [address] 14 Feb, 2019 Epigastric pain R10.13 ; [address] pain, unspecified type R07.9 and Abnormal ECG R94.31 [facility] [id number] [place] [address] 13 Feb, 2019 [address] [address] [address] [address] Oct, Essential hypertension I10 ; Moderate episode of recurrent major depressive disorder F33.1 ; RLS (restless legs syndrome) G25.81 ; History of VA (myocardial infarction) I25.2 and Encounter for immunization Z23 [facility] [address] [place] [address] Oct, [facility] [address] [place] [address] Oct, [facility] [address] [place] [address] Jul, History of VA (myocardial in farction) I25.2 and Moderate episode of recurrent major depressive disorder F33.[address] [facility] [address] [place] [address] Apr, RLS (restless legs syndrome) G25.81 ; History of VA (myocardial infarction) I25.2 ; Moderate episode of recurrent major depressive disorder F33.1 and Insomnia, unspecified G47.[address] [facility] [address] [place] [address] Apr, History of [place] (myocardial in farction) I25.[address] [facility] [address] [place] [address] Apr, History of [place] (myocardial in farction) I25.2 [facility] [id number] [place] [address] Jan, [facility] [id number] [place] [address] Dec, [facility] [id number] [place] [address] Dec, [facility] [id number] [place] [address] Aug, [facility] [id number] [place] [address] Oct, [facility] [id number] [place] [address] Oct, [facility] [id number] [place] [address] May, [facility] [id number] [place] [address] May, [facility] [address] [id number] [place] [address] Apr, [facility] [address] [id number] [place] [address] Apr, [facility] [address] [id number] [place] [address] Jul, [facility] [address] [id number] [place] [address] Jul, [facility] [address] [id number] [place] [address] May, [facility] [address] [id number] [place] [address] Aug, [facility] [address] [id number] [place] [address] Aug, [facility] [address] [id number] [place] [address] Jul, [facility] [address] [id number] [place] [address] Jul, [facility] [address] [id number] [place] [address] Jan, [facility] [address] [id number] [place] [address] Jan, [facility] [address] [id number] [place] [address] Jan, [facility] [address] [id number] [place] [address] Sep, [facility] [id number] [place] [address] 30 Jan, 2010 [facility] [address] [id number] [place] [address] Jan, [facility] [address] [id number] [place] [address] Jan, [facility] [address] [id number] [place] [address] Jan, [facility] [address] [id number] [place] [address] Nov, [facility] [address] [id number] [place] [address] Nov, [facility] [id number] [place] [address] Nov, [facility] [id number] [place] [address] Nov, [facility] [address] [id number] [place] [address] Mar, [facility] [address] [id number] [place] [address] Feb, IMMUNIZATIONS No Known Immunizations SOCIAL HISTORY Never Assessed REASON FOR VISIT Lab (walk-in) PLAN OF CARE VITAL SIGNS MEDICATIONS Unknown Medications RESULTS No Results PROCEDURES Procedure Date Ordered Result Body Site COMPREHEN METABOLIC PANEL May 21, 2018 LIPID PANEL May 21, 2018 INSTRUCTIONS MEDICATIONS ADMINISTERED No Known Medications MEDICAL (GENERAL) HISTORY Type Description Date Medical History myocardial infarction 09/07/2016 Medical History hyperlipidemia Medical History hypertension Medical History depression Surgical History cardiac stent x 1 08/2016 Hospitalization History Surgery(s) only Hospitalization History Ed abdominal pain and chest pain 02/25
--- OUTSIDE RECORDS SUMMARY | 2019-08-31 08:36 | XMS REPORT ---
Author Author Dinesh BLOUNT Organization [facility] Address [address] [place] [address] Care Team Providers Care Alternative Education Teacher Name Role Phone REINA BLOUNT Unavailable PROBLEMS Type Condition ICD9-CM Code UNO30-EN Code Onset Dates Condition S tatus SNOMED Code Problem Cigarette nicotine dependence, uncomplicated F1 7.210 Aug, Active 784053977 Problem Moderate episode of recurrent major depressive disorde r F33.1 Oct, Active 72546845 Problem Insomnia G47.00 Oct, Active 3419932 01 Problem Essential hypertension I10 Active 16936120 Problem RLS (restless legs syndrome) G25.81 Oct, 6 Active 12698438 Problem Gastroesophageal reflux disease without esophagitis K21.9 Active 016863135 Problem Tobacco use Z72.0 Aug, Active 11273 3000 Problem Fibromyalgia M79.7 Nov, Active 2030 14097 Problem Insomnia, unspecified G47.00 Active 864471752 Problem History of [place] (myocardial infarction) I25.2 Active 905427995 ALLERGIES No Information ENCOUNTERS Encounter Location Date Diagnosis [address] [id number] [address] Mar, Influenza J11.1 and Acute to nsillitis due to other specified organisms J03.[address] [id number], [place] [address] 28 Feb, 2019 Hospital discharge follow-up Z09 ; Gastroesophageal reflux disease without esophagitis K21.9 and Chest pain, unspecified type R07.[address] [id number], [place] [address] 15 Feb, [address] [id number], [place] [address] 14 Feb, 2019 Epigastric pain R10.13 ; [address] st pain, unspecified type R07.9 and Abnormal ECG R94.31 [facility] [address] [id number] [address] [place] [address] Feb, [facility] [address] 340B [id number] [place] [address] Oct, Essential hypertension I10 ; Moderate episode of recurrent major depressive disorder F33.1 ; RLS (restless legs syndrome) G25.81 ; History of [place] (myocardial infarction) I25.2 and Encounter for immunization Z23 [facility] [address] 340B [id number] [place] [address] Oct, [address] 340B [id number] [place] [address] Oct, [address] 340B [id number] [place] [address] Jul, [address] [place] (myocardial in farction) I25.2 and Moderate episode of recurrent major depressive disorder F33.1 [facility] [address] 340B [id number] [place] [address] Apr, RLS (restless legs syndrome) G25.81 ; History of [place] (myocardial infarction) I25.2 ; Moderate episode of recurrent major depressive disorder F33.1 and Insomnia, unspecified G47.[address] 340B [id number] [place] [address] Apr, [address] [place] (myocardial in farction) I25.[address] 340B [id number] [place] [address] Apr, [address] [place] (myocardial in farction) I25.2 [facility] [address] [id number] [address] [place] [address] Jan, [facility] [address] [id number] [address] [place] [address] Dec, [facility] [address] [id number] [address] [place] [address] Dec, [facility] [address] [id number] [address] [place] [address], [place] [address] Aug, [facility] [address] [id number] [address] [place] [address], [place] [address] 30 Oct, 2014 [facility] [address] [id number] [address] [place] [address], [place] [address] Oct, [facility] [address] [id number] [address] [place] [address], [place] [address] May, [facility] [address] [id number] [address] [place] [address], [place] [address] May, [facility] [address] [id number] [address] [place] [address], [place] [address] Apr, [facility] [address] [id number] [address] [place] [address], [place] [address] Apr, [facility] [address] [id number] [address] [place] [address], [place] [address] Jul, [facility] [address] [id number] [address] [place] [address], [place] [address] Jul, [facility] [address] [id number] [address] [place] [address], [place] [address] May, [facility] [address] [id number] [address] [place] [address], [place] [address] Aug, [facility] [address] [id number] [address] [place] [address], [place] [address] Aug, [facility] [address] [id number] [address] [place] [address], [place] [address] Jul, [facility] [address] [id number] [address] [place] [address], [place] [address] Jul, [facility] [address] [id number] [address] [place] [address], [place] [address] Jan, [facility] [address] [id number] [address] [place] [address] Jan, [facility] [address] [id number] [address] [place] [address] Jan, [facility] [address] [id number] [address] [place] [address] Sep, [facility] [address] [id number] [address] [place] [address] Jan, [facility] [address] [id number] [address] [place] [address] Jan, [facility] [address] [id number] [address] [place] [address] Jan, [facility] [address] [id number] [address] [place] [address] Jan, [facility] [address] [id number] [address] [place] [address] Nov, [facility] [address] [id number] [address] [place] [address] Nov, [facility] [address] [id number] [address] [place] [address] Nov, [facility] [address] [id number] [address] [place] [address] Nov, [facility] [address] [id number] [address] [place] [address] Mar, [facility] [address] [id number] [address] [place] [address] Feb, IMMUNIZATIONS No Known Immunizations SOCIAL HISTORY Never Assessed REASON FOR VISIT PLAN OF CARE VITAL SIGNS Height 71 in 2012-08-25 Weight 139.53 lbs 2012-08-25 Temperature 98.8 degrees Fahrenheit 2012-08-25 Heart Rate 80 bpm 2012-08-25 Respiratory Rate 16 2012-08-25 Blood pressure systolic 130 mmHg 2012-08-25 Blood pressure diastolic 84 mmHg 2012-08-25 MEDICATIONS No Known Medications RESULTS No Results PROCEDURES Procedure Date Ordered Result Body Site COMPREHEN METABOLIC PANEL August 25, 2012 VENIPUNCT, ROUTINE* August 25, 2012 INSTRUCTIONS MEDICATIONS ADMINISTERED No Known Medications MEDICAL (GENERAL) HISTORY Type Description Date Medical History myocardial infarction 09/07/2016 Medical History hyperlipidemia Medical History hypertension Medical History depression Surgical History cardiac stent x 1 08/2016 Hospitalization History Surgery(s) only Hospitalization History [place] abdominal pain and chest pain 02/25 Hospitalization History [place] for chest pain and abd ominal pain 03/09/2019
--- OUTSIDE RECORDS SUMMARY | 2019-08-31 08:36 | XMS REPORT ---
Author Author Dinesh BLOUNT Organization [facility] Address [address] [place] [address] Care Team Providers Care Private Branch Exchange Operator Name Role Phone REINA BLOUNT Unavailable PROBLEMS Type Condition ICD9-CM Code [id number] Code Onset Dates Condition S tatus SNOMED Code Problem Cigarette nicotine dependence, uncomplicated F1 7.210 Aug, Active 820292920 Problem Moderate episode of recurrent major depressive disorde r F33.1 Oct, Active 88223404 Problem Insomnia G47.00 Oct, Active 3055422 01 Problem Essential hypertension I10 Active 93580220 Problem RLS (restless legs syndrome) G25.81 Oct, 6 Active 37756253 Problem Gastroesophageal reflux disease without esophagitis K21.9 Active 726889207 Problem Tobacco use Z72.0 Aug, Active 19865 3000 Problem Fibromyalgia M79.7 Nov, Active 2030 60482 Problem Insomnia, unspecified G47.00 Active 487924722 Problem History of [place] (myocardial infarction) I25.2 Active 060374624 ALLERGIES No Information ENCOUNTERS Encounter Location Date Diagnosis [address] [place] [address] 28 Feb, 2019 Hospital discharge follow-up Z09 ; Gastroesophageal reflux disease without esophagitis K21.9 and Chest pain, unspecified type R07.[address] [place] [address] 15 Feb, 2019 [address] [address] [place] [address] 14 Feb, 2019 Epigastric pain R10.13 ; [facility] st pain, unspecified type R07.9 and Abnormal ECG R94.31 [facility] [address] [facility] [place] [address] 13 Feb, [address] [place] [address] Oct, Essential hypertension I10 ; Moderate episode of recurrent major depressive disorder F33.1 ; RLS (restless legs syndrome) G25.81 ; History of [place] (myocardial infarction) I25.2 and Encounter for immunization Z23 [facility] [address] [place] [address] Oct, [address] [place] [address] Oct, [facility] [address] [place] [address] Jul, History of [place] (myocardial in farction) I25.2 and Moderate episode of recurrent major depressive disorder F33.1 [address] [place] [address] Apr, RLS (restless legs syndrome) G25.81 ; History of [place] (myocardial infarction) I25.2 ; Moderate episode of recurrent major depressive disorder F33.1 and Insomnia, unspecified G47.00 [facility] [address] [place] [address] Apr, History of [place] (myocardial in farction) I25.2 [address] [place] [address] Apr, History of [place] (myocardial in farction) I25.2 [facility] [id number] [place] [address] Jan, [facility] [address] [address] Dec, [facility] [address] [address] Dec, [facility] [address] [address] Aug, [facility] [address] [address] Oct, [facility] [address] [facility] [place] [address] 25 Oct, 2014 [facility] [address] [facility] [place] [address] 14 May, 2014 [facility] [address] [facility] [place] [address] May, [facility] [address] [facility] [place] [address] Apr, [facility] [address] [facility] [place] [address] Apr, [facility] [address] [facility] [place] [address] Jul, [facility] [address] [facility] [place] [address] Jul, [facility] [address] [facility] [place] [address] May, [facility] [address] [facility] [place] [address] Aug, [facility] [address] [facility] [place] [address] Aug, [facility] [address] [facility] [place] [address] Jul, [facility] [address] [facility] [place] [address] Jul, [facility] [address] [facility] [place] [address] Jan, [facility] [address] [facility] [place] [address] Jan, [facility] [address] [facility] [place] [address] Jan, [facility] [address] [facility] [place] [address] Sep, [facility] [address] [facility] [place] [address] 30 Jan, 2010 [facility] [address] [facility] [place] [address] Jan, [facility] [address] [facility] [place] [address] Jan, [facility] [address] [facility] [place] [address] Jan, [facility] [address] [facility] [place] [address] Nov, [facility] [address] [facility] [place] [address] Nov, [facility] [address] [facility] [place] [address] Nov, [facility] [address] [facility] [place] [address] Nov, [facility] [address] [facility] [place] [address] Mar, [facility] [address] [facility] [place] [address] Feb, IMMUNIZATIONS No Known Immunizations SOCIAL HISTORY Never Assessed REASON FOR VISIT PLAN OF CARE VITAL SIGNS MEDICATIONS No Known Medications RESULTS No Results PROCEDURES No Known procedures INSTRUCTIONS MEDICATIONS ADMINISTERED No Known Medications MEDICAL (GENERAL) HISTORY Type Description Date Medical History myocardial infarction 09/07/2016 Medical History hyperlipidemia Medical History hypertension Medical History depression Surgical History cardiac stent x 1 08/2016 Hospitalization History Surgery(s) only Hospitalization History [place] abdominal pain and chest pain 02/25 Hospitalization History [place] for chest pain and abd ominal pain 03/09/2019
--- OUTSIDE RECORDS SUMMARY | 2019-08-31 08:36 | XMS REPORT ---
Author Author Dinesh CORREA Organization [facility] Address [address] [place] [address] Care Team Providers Care Head Mechanic Name Role Phone SUNNY NEO Unavailable PROBLEMS Type Condition ICD9-CM Code EJP69-EV Code Onset Dates Condition S tatus SNOMED Code Problem Cigarette nicotine dependence, uncomplicated F1 7.210 Aug, Active 640910724 Problem Moderate episode of recurrent major depressive disorde r F33.1 Oct, Active 20641807 Problem Insomnia G47.00 Oct, Active 4280713 01 Problem Essential hypertension I10 Active 91201071 Problem RLS (restless legs syndrome) G25.81 Oct, 6 Active 28803212 Problem Gastroesophageal reflux disease without esophagitis K21.9 Active 464001852 Problem Tobacco use Z72.0 Aug, Active 57708 3000 Problem Fibromyalgia M79.7 Nov, Active 2030 58700 Problem Insomnia, unspecified G47.00 Active 524535912 Problem History of [place] (myocardial infarction) I25.2 Active 027115628 ALLERGIES No Information ENCOUNTERS Encounter Location Date Diagnosis [address] [place] [address] Mar, Influenza J11.1 and Acute to nsillitis due to other specified organisms J03.[address] [id number] [address] 28 Feb, 2019 Hospital discharge follow-up Z09 ; Gastroesophageal reflux disease without esophagitis K21.9 and Chest pain, unspecified type R07.[address] [place] [address] 15 Feb, [address] [place], [place] [address] 14 Feb, 2019 Epigastric pain R10.13 ; [address] pain, unspecified type R07.9 and Abnormal ECG R94.31 [facility] [address] [id number] [address] [place] [address] Feb, [facility] [address] [id number] [place] [address] Oct, Essential hypertension I10 ; Moderate episode of recurrent major depressive disorder F33.1 ; RLS (restless legs syndrome) G25.81 ; History of [place] (myocardial infarction) I25.2 and Encounter for immunization Z23 [facility] [address] [id number] [place] [address] Oct, [address] [id number] [place] [address] Oct, [address] [id number] [place] [address] Jul, History of [place] (myocardial in farction) I25.2 and Moderate episode of recurrent major depressive disorder F33.1 [facility] [address] 340[address] [id number] [place] [address] Apr, RLS (restless legs syndrome) G25.81 ; History of [place] (myocardial infarction) I25.2 ; Moderate episode of recurrent major depressive disorder F33.1 and Insomnia, unspecified G47.[address] [id number] [place] [address] Apr, History of [place] (myocardial in farction) I25.[address] [id number] [place] [address] Apr, History of [place] (myocardial in farction) I25.2 [facility] [address] [id number] [address] [place] [address] Jan, [facility] [address] [id number] [address] [place] [address] Dec, [facility] [address] [id number] [address] [place] [address] Dec, [facility] [address] [id number] [address] [place] [address], [place] [address] Aug, [facility] [address] [id number] [address] [place] [address], [place] [address] 30 Oct, 2014 [facility] [address] [id number] [address] [place] [address], [place] [address] Oct, [facility] [address] [id number] [address] [place] [address], [place] [address] May, [facility] [address] [id number] [address] [place] [address], [place] [address] May, [facility] [address] [id number] [address] [place] [address], [place] [address] Apr, [facility] [address] [id number] [address] [place] [address], [place] [address] Apr, [facility] [address] [id number] [address] [place] [address], [place] [address] Jul, [facility] [address] [id number] [address] [place] [address], [place] [address] Jul, [facility] [address] [id number] [address] [place] [address], [place] [address] May, [facility] [address] [id number] [address] [place] [address], [place] [address] Aug, [facility] [address] [id number] [address] [place] [address], [place] [address] Aug, [facility] [address] [id number] [address] [place] [address], [place] [address] Jul, [facility] [address] [id number] [address] [place] [address], [place] [address] Jul, [facility] [address] [id number] [address] [place] [address], [place] [address] Jan, [facility] [address] [id number] [address] [place] [address] Jan, [facility] [address] [id number] [address] [place] [address] Jan, [facility] [address] [id number] [address] [place] [address] Sep, [facility] [address] [id number] [address] [place] [address] Jan, [facility] [address] [id number] [address] [place] [address] Jan, [facility] [address] [id number] [address] [place] [address] Jan, [facility] [address] [id number] [address] [place] [address] Jan, [facility] [address] [id number] [address] [place] [address] Nov, [facility] [address] [id number] [address] [place] [address] Nov, [facility] [address] [id number] [address] [place] [address] Nov, [facility] [address] [id number] [address] [place] [address] Nov, [facility] [address] [id number] [address] [place] [address] Mar, [facility] [address] [id number] [address] [place] [address] Feb, IMMUNIZATIONS No Known Immunizations SOCIAL HISTORY Never Assessed REASON FOR VISIT PLAN OF CARE VITAL SIGNS Height 71 in 2012-08-20 Weight 139 lbs 2012-08-20 Temperature 98.3 degrees Fahrenheit 2012-08-20 Heart Rate 80 bpm 2012-08-20 Respiratory Rate 20 2012-08-20 Blood pressure systolic 130 mmHg 2012-08-20 Blood pressure diastolic 80 mmHg 2012-08-20 MEDICATIONS No Known Medications RESULTS No Results PROCEDURES Procedure Date Ordered Result Body Site ELECTROCARDIOGRAM, TRACING August 20, 2012 INSTRUCTIONS MEDICATIONS ADMINISTERED No Known Medications MEDICAL (GENERAL) HISTORY Type Description Date Medical History myocardial infarction 09/07/2016 Medical History hyperlipidemia Medical History hypertension Medical History depression Surgical History cardiac stent x 1 08/2016 Hospitalization History Surgery(s) only Hospitalization History [place] abdominal pain and chest pain 02/25 Hospitalization History [place] for chest pain and abd ominal pain 03/09/2019
--- OUTSIDE RECORDS SUMMARY | 2019-08-31 08:36 | XMS REPORT ---
Author Author Dinesh BLOUNT Organization [facility] Address [address] [place] [address] Care Team Providers Care Ham Boner Name Role Phone REINA BLOUNT Unavailable PROBLEMS Type Condition ICD9-CM Code [id number] Code Onset Dates Condition S tatus SNOMED Code Problem RLS (restless legs syndrome) G25.81 Oct, 6 Active 15065261 Problem Cigarette nicotine dependence, uncomplicated F1 7.210 Aug, Active 940111629 Problem Moderate episode of recurrent major depressive disorde r F33.1 Oct, Active 35455596 Problem History of OR (myocardial infarction) I25.2 Active 342644718 Problem Essential hypertension I10 Active 82115437 Problem Insomnia G47.00 Oct, Active 2653999 01 Problem Tobacco use Z72.0 Aug, Active 96776 3000 Problem Fibromyalgia M79.7 Nov, Active 2030 19240 Problem Insomnia, unspecified G47.00 Active 382735604 ALLERGIES No Information ENCOUNTERS Encounter Location Date Diagnosis [address] [address] Oct, Essential hypertension I10 ; Moderate episode of recurrent major depressive disorder F33.1 ; RLS (restless legs syndrome) G25.81 ; History of OR (myocardial infarction) I25.2 and Encounter for immunization Z23 [address] [place] [address] Oct, [address] [place] [address] Oct, [address] [place] [address] Jul, History of OR (myocardial in farction) I25.2 and Moderate episode of recurrent major depressive disorder F33.[address] [place] [address] Apr, RLS (restless legs syndrome) G25.81 ; History of OR (myocardial infarction) I25.2 ; Moderate episode of recurrent major depressive disorder F33.1 and Insomnia, unspecified G47.00 [facility] [address] [place] [address] Apr, History of OR (myocardial in farction) I25.2 [facility] [address] [place] [address] Apr, History of OR (myocardial in farction) I25.2 [facility] [id number] [place] [address] Jan, [facility] [id number] [place] [address] Dec, [facility] [id number] [place] [address] Dec, [facility] [id number] [place] [address] Aug, [facility] [id number] [place] [address] Oct, [facility] [id number] [place] [address] Oct, [facility] [id number] [place] [address] May, [facility] [id number] [place] [address] May, [facility] [id number] [place] [address] Apr, [facility] [id number] [place] [address] Apr, [facility] [id number] [place] [address] Jul, [facility] [address] [address] [place] [address] 13 Jul, 2013 [facility] [address] [id number] [place] [address] May, [facility] [address] [id number] [place] [address] Aug, [facility] [address] [id number] [place] [address] Aug, [facility] [address] [id number] [place] [address] Jul, [facility] [address] [id number] [place] [address] Jul, [facility] [address] [id number] [place] [address] Jan, [facility] [address] [id number] [place] [address] Jan, [facility] [address] [id number] [place] [address] Jan, [facility] [address] [id number] [place] [address] Sep, [facility] [address] [id number] [place] [address] Jan, [facility] [address] [id number] [place] [address] Jan, [facility] [address] [id number] [place] [address] Jan, [facility] [address] [id number] [place] [address] Jan, [facility] [id number] [place] [address] Nov, [facility] [address] [id number] [place] [address] Nov, [facility] [address] [id number] [place] [address] Nov, [facility] [address] [id number] [place] [address] Nov, [facility] [address] [id number] [place] [address] Mar, [facility] [address] [id number] [place] [address] Feb, IMMUNIZATIONS No Known Immunizations SOCIAL HISTORY Never Assessed REASON FOR VISIT PLAN OF CARE VITAL SIGNS Height 71 in 2013-08-07 Weight 147.7 lbs 2013-08-07 Temperature 98.2 degrees Fahrenheit 2013-08-07 Heart Rate 76 bpm 2013-08-07 Respiratory Rate 18 2013-08-07 Blood pressure systolic 162 mmHg 2013-08-07 Blood pressure diastolic 98 mmHg 2013-08-07 MEDICATIONS No Known Medications RESULTS No Results PROCEDURES No Known procedures INSTRUCTIONS MEDICATIONS ADMINISTERED No Known Medications MEDICAL (GENERAL) HISTORY Type Description Date Medical History myocardial infarction 09/07/2016 Medical History hyperlipidemia Medical History hypertension Medical History depression Surgical History cardiac stent x 1 08/2016 Hospitalization History Surgery(s) only
--- NOTE | 2019-08-31 09:28 | Progress Note-Pre Operative ---
Pre-Operative Progress Note H&P Reviewed The H&P was reviewed, patient examined and no changes noted. Time Seen by Provider: 09:25 Date H&P Reviewed: Aug 31, 2019 Time H&P Reviewed: 09:24 Pre-Operative Diagnosis: Gastritis, Epigastric Pain MARIA GUADALUPE DE LA PAZ DO Aug 31, 2019 09:28
[2019-08-31] MEDS ORDERED: HURRICAINE EXT TUBE (BENZOCAINE) ONE (09:52)
[2019-08-31] MEDS ORDERED: PROPOFOL INJECTION 50 ML IV ONE (09:54)
[2019-08-31] MEDS ORDERED: MIDAZOLAM 2 MG/2 ML (VERSED) VIAL ONE (09:54)
--- NOTE | 2019-08-31 10:14 | Progress Note-Post Operative ---
Post-Operative Progess Note Surgeon (s)/Fitness Club Manager (s) Surgeon MARIA GUADALUPE DE LA PAZ DO Fitness Club Manager: none Pre-Operative Diagnosis Gastritis, Epigastric Pain Post-Operative Diagnosis Gastritis Esophagitis Procedure & Operative Findings Date of Procedure 08/31/19 Procedure Performed/Findings EGD with bx Anesthesia Type IV sedation by ENGINEERING LECTURER Estimated Blood Loss Estimated blood loss (mL): scant Specimens/Packing Specimens Removed Antral bx Body of stomach bx x 3 GE jxn bx MARIA GUADALUPE DE LA PAZ DO Aug 31, 2019 10:13
[2019-08-31 10:15] VITALS: BP 96/60
--- NOTE | 2019-08-31 10:15 | Endoscopy Discharge Instruct ---
Endo Procedure/Findings Findings 1.: Gastritis 2.: Other Findings (Esophagitis) Discharge Instructions - Activity: You might feel a little sleepy until tomorrow. This is due to the medicine you received to relax you. Until tomorrow, you should: NOT drive a car, operate machinery or power tools. NOT drink any alcoholic beverages. NOT make any important decisions or sign importortant papers. Do not return to work until tomorrow, unless otherwise instructed. Resume previous activities tomorrow. Diet: Start by taking liquids. If you tolerate liquids, advance to solid food. make an appointment for one week 1.: EGD in 1 year Notify Physician - If you experience excessive bleeding, unusual abdominal pain, fever, or chest pain, contact your doctor immediately. MARIA GUADALUPE DE LA PAZ DO Aug 31, 2019 10:15
[2019-08-31 10:20] VITALS: BP 107/68
[2019-08-31 10:45] VITALS: BP 118/80
[2019-08-31] MEDS ORDERED: HURRICAINE EXT TUBE (BENZOCAINE) XX ONE (10:45)
[2019-08-31 10:50] VITALS: BP 118/80
--- NOTE | 2019-08-31 12:15 | Anesthesia-General Post-Op ---
MAC Patient Condition Mental Status/LOC: Same as Preop Cardiovascular: Satisfactory Nausea/Vomiting: Absent Respiratory: Satisfactory Pain: Controlled Complications: Absent Post Op Complications Complications None Follow Up Care/Instructions Patient Instructions None needed. Anesthesiology Discharge Order Discharge Order Patient is doing well, no complaints, stable vital signs, no apparent adverse anesthesia problems. No complications reported per nursing. KRISTEN EMMANUEL CRNA Aug 31, 2019 12:15
--- NOTE | 2019-09-01 05:02 | OPERATIVE REPORT ---
DATE OF SERVICE: PREOPERATIVE DIAGNOSES: Gastritis and epigastric pain. POSTOPERATIVE DIAGNOSES: Gastritis, esophagitis. PROCEDURE: EGD with biopsy. SURGEON: Demarcus Noyola DO SLAT PICKLER: None. ANESTHESIA: IV sedation by the DIETARY SUPERVISOR. SPECIMEN: Biopsy from the antrum, biopsy of body of stomach x3 and the GE junction biopsy. BLOOD LOSS: Scant. FLUIDS: Per anesthesia. POSTOPERATIVE CONDITION: Stable. INDICATION FOR PROCEDURE: The patient is a 44-year-old male, who has been having some severe gastritis with epigastric pain and needed a workup. FINDINGS: The patient had some changes at the GE junction, looked almost like an early Burks's and he had some mild gastritis. PROCEDURE NOTE: After informed consent was obtained, the patient was brought to the endoscopy suite, placed in bed in left lateral decubitus position. He was administered IV sedation by the DIETARY SUPERVISOR, who then monitored his vitals the entire time, heart rate, blood pressure and pulse ox and the placed the scope down the mouth through the esophagus and into the stomach. On the way down, noted some changes at the GE junction, took a picture of this, pushed into the stomach towards the antrum, took a picture of the antrum, there was mildly inflamed and into the duodenum, duodenum looked fine. Pulled back and did a biopsy of the antrum. Retroflexed the scope, did not see a hiatal hernia. He had some mild gastritis in the body of stomach and elected to do 2 biopsies, one of them got 2 pieces. Pulled the scope into the GE junction, did a biopsy of the GE junction and placed the scope back into the stomach, suctioned the air out and then pulled the scope up the esophagus out of the mouth. The patient tolerated the procedure, recovered in endoscopy suite. Job ID: [id number] DocumentID: [id number] Dictated Date: 08/31/2019 16:29:00 Master Ocean Date: 09/01/2019 05:01:47 Dictated By: DEMARCUS NOYOLA DO
== END 2019-08-31 10:50 | disposition home or self-care (01) ==
LOC: ENDO 08:21
PROVIDERS: ATTEND Surgery
DX: K21.0 Gastro-esophageal reflux disease with esophagitis (principal); K29.50 Unspecified chronic gastritis without bleeding; E78.00 Pure hypercholesterolemia, unspecified; I10 Essential (primary) hypertension; I25.10 Atherosclerotic heart disease of native coronary artery without angina pectoris; E78.5 Hyperlipidemia, unspecified; Z87.891 Personal history of nicotine dependence; Z87.19 Personal history of other diseases of the digestive system; Z95.5 Presence of coronary angioplasty implant and graft; Z79.82 Long term (current) use of aspirin; Z79.899 Other long term (current) drug therapy
CPT/HCPCS: 88305

== ENCOUNTER 2019-12-21 16:45 | Emergency (ER) | payer BC ==
[~2019-12-21] VITALS: Ht 180 cm; Wt 73.2 kg
[2019-12-21] MEDS ORDERED: HEParin 1000 UNIT/ML (10ML VIAL) FOR BOLUS IV SCH (17:15)
--- NOTE | 2019-12-21 17:22 | ED General ---
General Stated Complaint: RT LEG NUMBNESS Source of Information: Patient, Caregiver, RN/MD, RN Notes Reviewed History of Present Illness Date Seen by Provider: Dec 21, 2019 Time Seen by Provider: 16:45 Initial Comments This patient is a 44-year-old male that presents to the emergency department with complaint of right foot pain. Patient was seen from a local clinic due to the patient him foot pain concerning for possible arterial occlusion. Patient had an outpatient ultrasound that showed an occluded popliteal vessel. Patient presents and does have an ischemic right foot the mid foot to the toes. White cool to the touch. Intermittent posterior and dorsal pedis pulses. Brisk been ischemic emergency. Labs ordered patient be placed on heparin. Patient does have a history of cardiac disease followed by cardiology at [place]. Patient is are on aspirin and Plavix. As stated above patient was placed on heparin drip. Timing/Duration: 4-6 Hours Allergies and Home Medications Allergies Coded Allergies: No Known Drug Allergies (Unverified , 11/12/18) Home Medications Aspirin 81 Mg Tablet.dr, 81 MG PO DAILY, (Reported) Atorvastatin Calcium 40 Mg Tablet, 40 MG PO DAILY, (Reported) Carvedilol 3.125 Mg Tablet, 3.125 MG PO BID, (Reported) Clopidogrel Bisulfate 75 Mg Tablet, 75 MG PO DAILY, (Reported) Gabapentin 300 Mg Capsule, 600 MG PO BID, (Reported) Lisinopril 5 Mg Tablet, 5 MG PO DAILY, (Reported) Patient Home Medication List Home Medication List Reviewed: Yes Review of Systems Review of Systems Constitutional: No no symptoms reported, No see HPI, No chills, No diaphoresis, No dizziness, No fever, No malaise, No weakness, No weight gain, No weight loss, No other EENTM: No see HPI, No no symptoms reported, No ear discharge, No hearing loss, No ear pain, No blurred vision, No double vision, No eye pain, No tearing, No vision loss, No dental problems, No hoarseness, No mouth pain, No mouth swellin g, No epistaxis, No nose congestion, No nose pain, No throat pain, No throat swelling, No other Respiratory: No no symptoms reported, No see HPI, No cough, No dyspnea on exertion, No hemoptysis, No orthopnea, No phlegm, No short of breath, No stridor, No wheezing, No other Cardiovascular: No no symptoms reported, No see HPI, No chest pain, No edema, No Hx of Intervention, No palpitations, No syncope, No vascular heart diseas, No other Gastrointestinal: No RUQ, No LUQ, No RLQ, No LLQ, No no symptoms reported, No see HPI, No abdominal pain, No constipation, No diarrhea, No dysphagia, No hematemesis, No heartburn, No jaundice, No loss of appetite, No melena, No nausea, No vomiting, No other Genitourinary: No no symptoms reported, No see HPI, No decreased output, No discharge, No dysuria, No frequency, No hematuria, No hesitancy, No incontinence, No nocturia, No pain, No other Musculoskeletal: No no symptoms reported; see HPI; No back pain, No gout; joint pain; No joint swelling, No muscle pain, No muscle stiffness, No muscle cramps, No muscle twitching, No muscle weakness, No neck pain; other Skin: see HPI, change in color Psychiatric/Neurological: Denies No Symptoms Reported; See HPI; Denies Anxiety, Denies Depressed, Denies Emotional Problems, Denies Headache, Denies Numbness, Denies Paresthesia, Denies Pre-Existing Deficit, Denies Seizure, Denies Tingling, Denies Tremors, Denies Weakness, Denies Other All Other Systems Reviewed Negative Unless Noted: Yes Past Iwxndyk-Ijvuhr-Eoktvx Hx Patient Social History Type Used: Cigars 2nd Hand Smoke Exposure: Yes Recent Foreign Travel: No Contact w/Someone Who Travel: No Recent Hopitalizations: No Seasonal Allergies Seasonal Allergies: No Past Medical History Surgeries: Yes (Open heart surgery) Cardiac, Coronary Stent Respiratory: No Cardiac: Yes (Nonsustained ventricular tachycardic, stable angina (chronic)) Coronary Artery Disease, Heart Attack, High Cholesterol, Hypertension Neurological: No Genitourinary: No Gastrointestinal: Yes (Diverticulitis) Gastroesophageal Reflux, Pancreatitis Musculoskeletal: Yes (restless leg syndrome) Endocrine: No HEENT: No Cancer: No Psychosocial: No Integumentary: No Blood Disorders: No Physical Exam Vital Signs Vital Signs - First Documented 12/21/19 17:30 Temp 36.5 Pulse 96 Resp 16 B/P (MAP) 151/92 (111) Pulse Ox 98 Capillary Refill : Height, Weight, BMI Height: '" Weight: lbs. oz. kg; 22.36 BMI Method: General Appearance: No Apparent Distress, WD/WN Respiratory: Chest Non Tender, Lungs Clear, Normal Breath Sounds, No Accessory Muscle Use, No Respiratory Distress Cardiovascular: Regular Rate, Rhythm, No Edema, No Gallop, No JVD, No Murmur, Normal Peripheral Pulses Gastrointestinal: Normal Bowel Sounds, No Organomegaly, No Pulsatile Mass, Non Tender, Soft Back: Normal Inspection, No CVA Tenderness, No Vertebral Tenderness Extremity: Other (patient concerning for ischemic right foot and toes. Cold foot white in color. No circulation with capillary refill.) Progress/Results/Core Measures Suspected Sepsis SIRS Temperature: Pulse: Respiratory Rate: Laboratory Tests 12/21/19 17:10: Blood Pressure / Mean: Laboratory Tests 12/21/19 17:10: Results/Orders Lab Results Laboratory Tests Test 12/21/19 17:10 Range/Units My Orders Orders - CHA JOHNSON MD Ed Iv/Invasive Line Start (12/21/19 17:01) Cbc With Automated Diff (12/21/19 17:01) Comprehensive Metabolic Panel (12/21/19 17:01) Protime With Inr (12/21/19 17:01) Heparin (Bolus Per Protocol) (Heparin (B (12/21/19 17:15) Vital Signs/I&O 12/21/19 17:30 Temp 36.5 Pulse 96 Resp 16 B/P (MAP) 151/92 (111) Pulse Ox 98 Capillary Refill : Progress Note : Time: 17:20 Progress Note Patient be started on heparin drip. Appears to be an emergent arterial occlusion with right foot ischemia. Patient will be transferred to [place] for Dr. Farmer he will see patient upon arrival. He agrees with a heparin drip started in the emergency department. This is an emergent transfer Ultrasound report appears the patient has an acute appearing occlusion of the popliteal artery with minimal flow to the pop posterior tibial artery. No flow seen in the dorsal pedis artery. The foot right Departure Impression Primary Impression: Acute occlusion of artery of lower extremity Additional Impression: Ischemic pain of right foot Disposition: XF SHT-TRM HOSP Condition: Stable Transfer Transfer Reason: Exceeds level of care Time Spoke to Accepting Phy: 17:[address] Farmer at [facility] has accepted this patient Transfer Time: 17:22 Transfer Facility: [facility] Method of Transfer: EMS (no air transport available due to whether) Departure-Patient Inst. Referrals: [facility] (PCP) Primary Care Physician LORENZO SANFORD APRN (Family) Primary Care Physician CHA JOHNSON MD Dec 21, 2019 17:22
[2019-12-21 17:34] LABS: WHITE BLOOD COUNT 8.5 10^3/uL (4.3-11.0)
[2019-12-21 17:35] LABS: BASOPHILS % (AUTO) 0 % (0-10); EOSINOPHILS % (AUTO) 1 % (0-10); HEMATOCRIT 43 % (40-54); HEMOGLOBIN 14.9 G/DL (13.3-17.7); LYMPHOCYTES % (AUTO) 23 % (12-44); MEAN CORPUSCULAR HEMOGLOBIN 31 PG (25-34); MEAN CORPUSCULAR HGB CONC 35 G/DL (32-36); MEAN CORPUSCULAR VOLUME 88 FL (80-99); MEAN PLATELET VOLUME 9.1 FL (7.4-10.4); MONOCYTES # (AUTO) 0.5 X 10^3 (0.0-1.0); MONOCYTES % (AUTO) 5 % (0-12); NEUTROPHILS % (AUTO) 71 % (42-75); PLATELET COUNT 616 10^3/uL (130-400)
[2019-12-21 17:36] LABS: INR 0.9 (0.8-1.4); PROTHROMBIN TIME PATIENT 12.8 SEC (12.2-14.7)
[2019-12-21 17:40] VITALS: BP 151/92
[2019-12-21 17:45] LABS: CHLORIDE 105 MMOL/L (98-107); POTASSIUM 4.4 MMOL/L (3.6-5.0); SODIUM 141 MMOL/L (135-145)
[2019-12-21 17:46] LABS: ALANINE AMINOTRANSFERASE 30 U/L (0-55); ALBUMIN 4.8 GM/DL (3.2-4.5); ALKALINE PHOSPHATASE 93 U/L (40-136); BILIRUBIN,TOTAL 0.3 MG/DL (0.1-1.0); BUN/CREATININE RATIO 14; CALCIUM 9.5 MG/DL (8.5-10.1); CARBON DIOXIDE 24 MMOL/L (21-32); CREATININE SERUM 0.76 MG/DL (0.60-1.30); GFR ESTIMATED > 60; GLUCOSE 110 MG/DL (70-105); TOTAL PROTEIN 7.4 GM/DL (6.4-8.2)
== END 2019-12-21 17:39 | disposition short-term general hospital (02) ==
LOC: EDUNIT# 16:45 → ER FS 16:47
DX: I77.1 Stricture of artery (principal); M79.671 Pain in right foot; I25.2 Old myocardial infarction; E78.00 Pure hypercholesterolemia, unspecified; I10 Essential (primary) hypertension; Z95.5 Presence of coronary angioplasty implant and graft; Z77.22 Contact with and (suspected) exposure to environmental tobacco smoke (acute) (chronic); Z79.82 Long term (current) use of aspirin
CPT/HCPCS: 36415; 80053; 85025; 85610

== ENCOUNTER → 2020-01-04 | Outpatient (CLI) | payer BC | LOC: WOUNDCARE 10:24 | PROVIDERS: ATTEND Surgery | DX: L97.212 Non-pressure chronic ulcer of right calf with fat layer exposed (principal); I70.203 Unspecified atherosclerosis of native arteries of extremities, bilateral legs; I71.2 Thoracic aortic aneurysm, without rupture; Z20.828 Contact with and (suspected) exposure to other viral communicable diseases | CPT/HCPCS: 97606; G0463 ==

== ENCOUNTER → 2020-01-07 | Outpatient (CLI) | payer BC | LOC: WOUNDCARE 10:01 | PROVIDERS: ATTEND Surgery | DX: S81.802A Unspecified open wound, left lower leg, initial encounter (principal) | CPT/HCPCS: 97606; G0463 ==

== ENCOUNTER 2020-01-10 23:58 | Emergency (ER) | payer BC ==
[~2020-01-10] VITALS: Ht 180.3 cm; Wt 70.3 kg
[2020-01-11 00:07] VITALS: BP 147/82
--- NOTE | 2020-01-11 00:35 | ED Integumentary General ---
General Chief Complaint: Skin/Wound Problems Stated Complaint: WOUND CHECK Nursing Triage Note: PT TO ROOM FS06 VIA W/C WITH C/O WOUND VAC ISSUES. PT REPORTS WOUND VAC STATES THAT THE HOSE IS CLOTTED. PT STATES HE HAS AN APPT WITH WOUND CARE TOMORROW AT 1100. Source: patient Exam Limitations: no limitations History of Present Illness Date Seen by Provider: Jan 11, 2020 Time Seen by Provider: 00:00 Initial Comments Patient is a 44-year-old male who presents to the emergency room with a chief complaint of malfunctioning wound VAC. Patient had fasciotomies to the right lower extremity approximately 3 weeks ago for compartment syndrome secondary to a blood clot in his leg. He is followed by Dr. Friedman in the wound care clinic. Patient states that the wound has been bleeding and he believes there is an occlusion in the tubing from the wound VAC to the central unit. Patient denies any pain, no recent fevers chills or other systemic complaints. All other review of systems reviewed and negative except as stated Timing/Duration: this evening Severity: moderate Location: extremities (Right lower extremity) Possible Cause: no cause identified Associated Symptoms: denies symptoms Allergies and Home Medications Allergies Coded Allergies: No Known Drug Allergies (Unverified , 11/12/18) Home Medications Aspirin 81 Mg Tablet.dr, 81 MG PO DAILY, (Reported) Atorvastatin Calcium 40 Mg Tablet, 40 MG PO DAILY, (Reported) Carvedilol 3.125 Mg Tablet, 3.125 MG PO BID, (Reported) Clopidogrel Bisulfate 75 Mg Tablet, 75 MG PO DAILY, (Reported) Gabapentin 300 Mg Capsule, 600 MG PO BID, (Reported) Lisinopril 5 Mg Tablet, 5 MG PO DAILY, (Reported) Patient Home Medication List Home Medication List Reviewed: Yes Review of Systems Review of Systems Constitutional: no symptoms reported Respiratory: no symptoms reported Cardiovascular: no symptoms reported Gastrointestinal: no symptoms reported Musculoskeletal: other (Bleeding from the wounds on his right lower extremity) Past Hiqvwbo-Zpykos-Tqgaet Hx Patient Social History Alcohol Use: Occasionally Uses Alcohol Beverage of Choice: Beer Recreational Drug Use: No Smoking Status: Former Smoker Type Used: Cigars 2nd Hand Smoke Exposure: Yes Recent Foreign Travel: No Contact w/Someone Who Travel: No Recent Infectious Disease Expo: No Recent Hopitalizations: No Physical Abuse: No Sexual Abuse: No Mistreated: No Fear: No Seasonal Allergies Seasonal Allergies: No Past Medical History Surgeries: Yes (Open heart surgery, RIGHT LEG ) Cardiac, Coronary Stent Respiratory: No Cardiac: Yes (Nonsustained ventricular tachycardic, stable angina (chronic)) Coronary Artery Disease, Heart Attack, High Cholesterol, Hypertension Neurological: No Genitourinary: No Gastrointestinal: Yes (Diverticulitis) Gastroesophageal Reflux, Pancreatitis Musculoskeletal: Yes (restless leg syndrome) Endocrine: No HEENT: No Cancer: No Psychosocial: No Integumentary: No Blood Disorders: No Physical Exam Vital Signs Vital Signs - First Documented 01/11/20 00:07 Temp 36.9 Pulse 85 Resp 17 B/P (MAP) 147/82 (103) O2 Delivery Room Air Capillary Refill : Less Than 3 Seconds General Appearance: WD/WN, no apparent distress Cardiovascular: regular rate, rhythm Respiratory: normal breath sounds, no respiratory distress, no accessory muscle use Extremities: normal range of motion, non-tender, other (Patient has bilateral fasciotomies to the right lower extremity. He has a wound VAC in place that set shows bloodsoaked dressings. His wound VAC is reading low pressures.) Neurologic/Psychiatric: alert, normal mood/affect, oriented x 3 Skin: normal color, warm/dry Progress/Results/Core Measures Results/Orders Vital Signs/I&O 01/11/20 00:07 Temp 36.9 Pulse 85 Resp 17 B/P (MAP) 147/82 (103) O2 Delivery Room Air Blood Pressure Mean: 103 Progress Progress Note : Time: 00:30 Progress Note Case discussed with Dr. Friedman regarding the malfunctioning wound VAC. Dr. Friedman instructs to remove the wound VAC and apply a dry pressure dressing to the wounds. Elevate the leg and monitor for bleeding for approximately 10 minutes. The patient has an appointment with Dr. Friedman in the morning at 11. I have instructed him to call the office first thing in the morning to see if he can get in any earlier. Patient's wound is redressed as instructed. There is no noted active bleeding to the wound site. Wound appears to be staying dry. Patient is comfortable with the plan of care. All questions are sought and answered and he is stable for discharge. Departure Impression Primary Impression: Encounter for management of wound VAC Disposition: 01 HOME, SELF-CARE Condition: Stable Departure-Patient Inst. Decision time for Depature: 00:48 Referrals: [facility] (PCP) Primary Care Physician LORENZO SANFORD APRN (Family) Primary Care Physician MANDIE FRIEDMAN MD Patient Instructions: Wound Care (DC) Add. Discharge Instructions: Keep the wound clean dry and covered as dressed this evening. If you notice seepage of blood through the dressing, remove it reapply a pressure dressing as done this evening. Please follow-up with Dr. Friedman first thing in the morning. COMPA DOMINIQUE MD Jan 11, 2020 00:35
== END 2020-01-11 00:56 | disposition home or self-care (01) ==
LOC: EDUNIT# 23:58 → ER FS 01-11 00:01
DX: Z48.00 Encounter for change or removal of nonsurgical wound dressing (principal); I10 Essential (primary) hypertension; E78.00 Pure hypercholesterolemia, unspecified; I25.2 Old myocardial infarction; Z20.828 Contact with and (suspected) exposure to other viral communicable diseases; Z95.5 Presence of coronary angioplasty implant and graft; Z87.891 Personal history of nicotine dependence; Z79.82 Long term (current) use of aspirin

== ENCOUNTER → 2020-01-11 | Outpatient (CLI) | payer BC | LOC: WOUNDCARE 10:44 | PROVIDERS: ATTEND Surgery | DX: I96 Gangrene, not elsewhere classified (principal); L97.212 Non-pressure chronic ulcer of right calf with fat layer exposed; I70.203 Unspecified atherosclerosis of native arteries of extremities, bilateral legs; I71.2 Thoracic aortic aneurysm, without rupture | CPT/HCPCS: 99213 ==

== ENCOUNTER → 2020-01-18 | Outpatient (CLI) | payer BC | LOC: WOUNDCARE 10:43 | PROVIDERS: ATTEND Surgery | DX: I96 Gangrene, not elsewhere classified (principal); L97.212 Non-pressure chronic ulcer of right calf with fat layer exposed; I70.203 Unspecified atherosclerosis of native arteries of extremities, bilateral legs; I71.2 Thoracic aortic aneurysm, without rupture | CPT/HCPCS: 11042; 11045; G0463 ==

== ENCOUNTER → 2020-01-25 | Outpatient (CLI) | payer BC | LOC: WOUNDCARE 10:09 | PROVIDERS: ATTEND Surgery | DX: M62.561 Muscle wasting and atrophy, not elsewhere classified, right lower leg (principal); L97.212 Non-pressure chronic ulcer of right calf with fat layer exposed; I70.203 Unspecified atherosclerosis of native arteries of extremities, bilateral legs; I71.2 Thoracic aortic aneurysm, without rupture; I96 Gangrene, not elsewhere classified; Z20.828 Contact with and (suspected) exposure to other viral communicable diseases | CPT/HCPCS: 11042; 11045; G0463 ==

== ENCOUNTER → 2020-02-01 | Outpatient (CLI) | payer BC | LOC: WOUNDCARE 10:13 | PROVIDERS: ATTEND Surgery | DX: S81.801A Unspecified open wound, right lower leg, initial encounter (principal); M79.A21 Nontraumatic compartment syndrome of right lower extremity; I96 Gangrene, not elsewhere classified; I70.203 Unspecified atherosclerosis of native arteries of extremities, bilateral legs; I71.2 Thoracic aortic aneurysm, without rupture; M62.561 Muscle wasting and atrophy, not elsewhere classified, right lower leg; L97.212 Non-pressure chronic ulcer of right calf with fat layer exposed | CPT/HCPCS: 11042; 11045; G0463 ==

== ENCOUNTER → 2020-02-08 | Outpatient (CLI) | payer BC | LOC: WOUNDCARE 10:12 | PROVIDERS: ATTEND Surgery | DX: M79.A21 Nontraumatic compartment syndrome of right lower extremity (principal); S81.801A Unspecified open wound, right lower leg, initial encounter; L97.212 Non-pressure chronic ulcer of right calf with fat layer exposed; I70.203 Unspecified atherosclerosis of native arteries of extremities, bilateral legs; I71.2 Thoracic aortic aneurysm, without rupture; M62.561 Muscle wasting and atrophy, not elsewhere classified, right lower leg; I96 Gangrene, not elsewhere classified | CPT/HCPCS: 11042; 11045; G0463 ==

== ENCOUNTER → 2020-02-15 | Outpatient (CLI) | payer BC | LOC: WOUNDCARE 10:23 | PROVIDERS: ATTEND Surgery | DX: M79.A21 Nontraumatic compartment syndrome of right lower extremity (principal); S81.801A Unspecified open wound, right lower leg, initial encounter; L97.212 Non-pressure chronic ulcer of right calf with fat layer exposed; I70.203 Unspecified atherosclerosis of native arteries of extremities, bilateral legs; I71.2 Thoracic aortic aneurysm, without rupture; M62.561 Muscle wasting and atrophy, not elsewhere classified, right lower leg; I96 Gangrene, not elsewhere classified | CPT/HCPCS: 11042; G0463 ==

== ENCOUNTER → 2020-02-22 | Outpatient (CLI) | payer BC | LOC: WOUNDCARE 10:09 | PROVIDERS: ATTEND Surgery | DX: M79.A21 Nontraumatic compartment syndrome of right lower extremity (principal); S81.801A Unspecified open wound, right lower leg, initial encounter; L97.212 Non-pressure chronic ulcer of right calf with fat layer exposed; I70.203 Unspecified atherosclerosis of native arteries of extremities, bilateral legs; I71.2 Thoracic aortic aneurysm, without rupture; M62.561 Muscle wasting and atrophy, not elsewhere classified, right lower leg; I96 Gangrene, not elsewhere classified | CPT/HCPCS: 11042; G0463 ==

== ENCOUNTER → 2020-02-29 | Outpatient (CLI) | payer BC | LOC: WOUNDCARE 10:11 | PROVIDERS: ATTEND Surgery | DX: I70.261 Atherosclerosis of native arteries of extremities with gangrene, right leg (principal); M79.A21 Nontraumatic compartment syndrome of right lower extremity; S81.801A Unspecified open wound, right lower leg, initial encounter; L97.212 Non-pressure chronic ulcer of right calf with fat layer exposed; I71.2 Thoracic aortic aneurysm, without rupture; M62.561 Muscle wasting and atrophy, not elsewhere classified, right lower leg | CPT/HCPCS: 97597; G0463 ==

== ENCOUNTER → 2020-03-24 | Outpatient (CLI) | payer BC | LOC: WOUNDCARE 14:28 | PROVIDERS: ATTEND Surgery | DX: L92.8 Other granulomatous disorders of the skin and subcutaneous tissue (principal); S81.801A Unspecified open wound, right lower leg, initial encounter; L97.212 Non-pressure chronic ulcer of right calf with fat layer exposed; I96 Gangrene, not elsewhere classified; I70.203 Unspecified atherosclerosis of native arteries of extremities, bilateral legs; I71.2 Thoracic aortic aneurysm, without rupture; M62.561 Muscle wasting and atrophy, not elsewhere classified, right lower leg; M79.A21 Nontraumatic compartment syndrome of right lower extremity | CPT/HCPCS: 17250; G0463 ==

== ENCOUNTER → 2020-03-30 | Outpatient (CLI) | payer BC | LOC: WOUNDCARE 09:27 | PROVIDERS: ATTEND Surgery | DX: L92.8 Other granulomatous disorders of the skin and subcutaneous tissue (principal); L97.212 Non-pressure chronic ulcer of right calf with fat layer exposed; M79.A21 Nontraumatic compartment syndrome of right lower extremity; M62.561 Muscle wasting and atrophy, not elsewhere classified, right lower leg; S81.801A Unspecified open wound, right lower leg, initial encounter; I70.203 Unspecified atherosclerosis of native arteries of extremities, bilateral legs; I71.2 Thoracic aortic aneurysm, without rupture; I96 Gangrene, not elsewhere classified | CPT/HCPCS: 17250; G0463 ==

== ENCOUNTER → 2020-04-06 | Outpatient (CLI) | payer BC ==
[~2020-04-06] MED LIST changes: -LISI-556 PO; +LISI-729 PO
== END ==
LOC: WOUNDCARE 09:27
PROVIDERS: ATTEND Surgery
DX: L92.8 Other granulomatous disorders of the skin and subcutaneous tissue (principal); M79.A29 Nontraumatic compartment syndrome of unspecified lower extremity; S81.801A Unspecified open wound, right lower leg, initial encounter; L97.212 Non-pressure chronic ulcer of right calf with fat layer exposed; I70.203 Unspecified atherosclerosis of native arteries of extremities, bilateral legs; I71.2 Thoracic aortic aneurysm, without rupture; M62.561 Muscle wasting and atrophy, not elsewhere classified, right lower leg
CPT/HCPCS: 99212